=== PATIENT | female | born 1990 | race African-American/Black ===

== ENCOUNTER 2021-08-06 12:01 | Emergency (ER) | payer OTHER, SELFPAY ==
--- NOTE | ~2021-08-06 | CT_ITS ---
CT head/brain wo con, CT facial bones wo con CLINICAL INFORMATION: Reason for Exam syncope, head strike, +loc, headache COMPARISON: No prior CT scan available for comparison. TECHNIQUE: CT head, CT facial bones noncontrasted study Department standard protocol. This CT examination was performed using dose optimization techniques as appropriate, variously including the following: *Automated exposure control *Adjustment of mA and/or kV according to patient size (this includes techniques or standardized protocols for targeted exams where dose is matched to indication/reason for exam; i.e. extremities or head) *Use of iterative reconstruction technique DLP: 1075 mGy-cm FINDINGS: CEREBRAL HEMISPHERES: There is no evidence of intra-axial or extra-axial mass, hemorrhage or acute infarct. BRAIN PARENCHYMA: Normal galvan-white matter differentiation. SUBDURAL SPACE: No bleed. BASAL GANGLIA AND PINEAL GLAND: Unremarkable VENTRICLES: Symmetric and normal in size. CEREBELLUM AND BRAINSTEM: No space-occupying mass, hemorrhage or acute infarct. CEREBELLOPONTINE ANGLES: No lesion found. ORBITS: No intraorbital mass. VESSELS: Unremarkable SKULL BASE: Unremarkable INCLUDED SINUSES AT SKULL BASE: Clear SKULL BASE: Included structures at skull base are normal. BONES: Skull base, orbital bones, nasal bones, maxillary bones, mandibles, zygomatic arches, and included cervical vertebrae are normal. ORBITS: Globes are symmetric. Orbital structures are normal. SALIVARY GLANDS: Unremarkable SINUSES: Clear CT/CT head/brain wo con IMPRESSION: *No CT evidence of intracranial injury or bleed. *Facial bones are intact. No fracture found.
--- NOTE | ~2021-08-06 | CT_ITS ---
CT head/brain wo con, CT facial bones wo con CLINICAL INFORMATION: Reason for Exam syncope, head strike, +loc, headache COMPARISON: No prior CT scan available for comparison. TECHNIQUE: CT head, CT facial bones noncontrasted study Department standard protocol. This CT examination was performed using dose optimization techniques as appropriate, variously including the following: *Automated exposure control *Adjustment of mA and/or kV according to patient size (this includes techniques or standardized protocols for targeted exams where dose is matched to indication/reason for exam; i.e. extremities or head) *Use of iterative reconstruction technique DLP: 1075 mGy-cm FINDINGS: CEREBRAL HEMISPHERES: There is no evidence of intra-axial or extra-axial mass, hemorrhage or acute infarct. BRAIN PARENCHYMA: Normal galvan-white matter differentiation. SUBDURAL SPACE: No bleed. BASAL GANGLIA AND PINEAL GLAND: Unremarkable VENTRICLES: Symmetric and normal in size. CEREBELLUM AND BRAINSTEM: No space-occupying mass, hemorrhage or acute infarct. CEREBELLOPONTINE ANGLES: No lesion found. ORBITS: No intraorbital mass. VESSELS: Unremarkable SKULL BASE: Unremarkable INCLUDED SINUSES AT SKULL BASE: Clear SKULL BASE: Included structures at skull base are normal. BONES: Skull base, orbital bones, nasal bones, maxillary bones, mandibles, zygomatic arches, and included cervical vertebrae are normal. ORBITS: Globes are symmetric. Orbital structures are normal. SALIVARY GLANDS: Unremarkable SINUSES: Clear CT/CT facial bones wo con IMPRESSION: *No CT evidence of intracranial injury or bleed. *Facial bones are intact. No fracture found.
[2021-08-06 12:14] VITALS: BP 157/80; RESP 18; TEMP 36.8; O2SAT 99; BMI 26.6
--- NOTE | 2021-08-06 15:27 | ED_ITS ---
HPI - General Adult General Chief complaint: General Medical Stated complaint: Broken Nose 7 Days Ago Time Seen by Provider: 08/06/21 15:27 Source: patient Mode of arrival: ambulatory Limitations: no limitations History of Present Illness HPI narrative: This is a 30-year-old female past medical history significant for drug-seeking behavior according to records from [facility] presenting to the emergency department with complaints of headache, nose pain, dizziness, frequent syncopal episodes x2 weeks patient tells me that her significant other recently and since then she has not been taking care of herself, she has been depressed, and she has had multiple syncopal episodes where she loses cons ciousness wakes up on the ground and is very confused. She tells me she is not eating or drinking well. She denies chest pain, shortness of breath, nausea, vomiting, fevers, chills. Onset (ago): week(s) (2) Location: head and face Radiation: non-radiation Severity: moderate Pain Consistency: constant Relieving factors: none Exacerbating factors: none Associated symptoms: denies other symptoms Treatments prior to arrival: none Related Data Home Medications Medication Instructions Recorded Confirmed amitriptyline 100 mg tablet 1 tab PO BEDTIME 08/06/21 08/06/21 norethindrone (contraceptive) 0.35 1 tab PO DAILY 08/06/21 08/06/21 mg tablet (Naima-BE) Allergies Allergy/AdvReac Type Severity Reaction Status Date / Time amoxicillin [AMOXICILLIN] Allergy Unknown SYNCOPE Verified 08/06/21 17:27 apple [APPLE] Allergy Unknown UNKNOWN Verified 08/06/21 17:27 CONTRAST DYE Allergy Unknown SYNCOPE Uncoded 08/06/21 17:27 Review of Systems Review of Systems: Constitutional : No Weight loss, No Fever, No Chills, No Fatigue, No Malaise ENT/Mouth : No sore throat, No Rhinorrhea, + nose pain Eyes: No Eye Pain, No Swelling, No Redness Cardiovascular : No Chest Pain, No SOB, No Dyspnea on Exertion, No Orthopnea, No Edema, No Palpitations Respiratory : No Cough, No Sputum, No Wheezing Gastrointestinal : No Nausea, No Vomiting, No Diarrhea, No Constipation, No abdominal Pain, No Hematochezia, No Melena Genitourinary : No Dysuria, No Urinary Frequency, No Hematuria, Musculoskeletal : No joint pain, No Myalgias, No Joint Swelling, Skin : No Skin Lesions, No rash Neuro : No Weakness, No Numbness, No Dizziness, + Headache Psych : No Anxiety/Panic, No Depression All other systems reviewed and are negative Yes all other systems are reviewed and are negative [facility] Past Medical History Attestation statement: The following information was validated with the patient. Source: old records reviewed and nursing notes reviewed Social History Social History Advance Directives: No Advance Directives Information Provided: No Physical Exam ED Vital Signs: Vital Signs - 24 hr 08/06/21 12:14 08/06/21 18:07 08/06/21 18:08 Temperature 98.3 F Pulse Rate 100 99 Respiratory Rate 18 Blood Pressure 157/80 H 120/70 119/75 Pulse Oximetry 99 08/06/21 18:10 Temperature 98.8 F Pulse Rate 87 Respiratory Rate 16 Blood Pressure 111/80 Pulse Oximetry 97 BMI result Body Mass Index 26.6 VSS Appearance: Alert.? Oriented X3.? No acute distress.? Head: Normocephalic, atraumatic, no step-offs or deformities Eyes: Pupils equal, round and reactive to light.? ENT: Pharynx normal.?No deformity to nose. Neck: Normal inspection.? Neck supple.? CVS: Normal heart rate and rhythm.? Pulses normal.? Respiratory: No respiratory distress.? Breath sounds normal.? Abdomen: Soft and nontender.? Skin: Skin warm and dry.? Normal skin color.? Normal skin turgor.? Extremities: No lower extremity edema.? No calf ttp. 5/5 strength to bilateral upper and lower extremities Back: No midline tenderness, no C-spine tenderness, full range of motion, no CVA tenderness bilaterally Neuro: Oriented X 3.? No motor deficit.? No sensory deficit. Cranial nerves 2- 12 intact. Normal [id number], [id number], normal tandem gait. Course Reevaluation(s) Reevaluation #1: Rapid change in patient's behavior, she is being belligerent with me and nurses. She is telling us that we a racist and have her in the hallway because she has black. She endorses suicidal ideation however she says it is not as bad as when her boyfriend 1st . She is refusing COVID testing, and CT scans. Studies were done CBC appeared to be at patient's baseline. No acute electrolyte abnormalities. Patient tells me she is not SI and she says I would never harm myself Will hold on a section 12 as there is no reason to section her at this time. Time: 16:39 Reevaluation #2: Records were obtained from [facility] where patient presented on 07/23/2019 with a similar presentation she had the same complaint, multiple syncopal episodes, stating that she had been seen multiple times at various emergency department for the same thing. Her story is consistent. She states that she lost a loved 1. She also reported at that time that she could not feel her legs and was having trouble walking. At that time she had no loss of bladder or bowel. Today she is not complaining of loss of sensation numbness or paresthesias. It appears as though patient also became somewhat aggressive, and derogatory toward staff members. It looks like she was asking for pain medicine frequently and got upset whenever it was not given to her. Time: 16:40 Reevaluation #3: COVID negative. CT of head and facial bones negative. Urine toxicology pending. During her time here she has not had any syncopal episodes, no vomiting, nausea, headache or dizziness. Headache went away after treatment with medication. No meningeal signs, unlikely meningitis. At this time patient will be placed in physician observation to allow more time to be evaluated by the care team. At time evaluation was started patient was, cooperative in no acute distress. Physical examination unchanged from initial will continue to monitor. Time: 19:06 Medical Decision Making [facility] Narrative Medical decision making narrative: 1600 30 yo f presents with frequent syncopal episodes and nose pain X4 days PE benign. Neuro exam nonfocal. At this time history and physical examination not consistent with stroke, posterior infarct, ICH. Plan- labs, imaging, ekg Medical Records Medical records reviewed: Yes I reviewed the patient's medical records. Lab Data Lab results reviewed: Yes I reviewed the patient's lab results. Result diagrams: 08/06/21 16:29 08/06/21 16:29 Labs: Lab Results 08/06/21 08/06/21 08/06/21 Range/Units 16:29 16:29 17:34 WBC 8.6 (4.8-10.8) X10*3/uL RBC 4.85 (4.20-5.50) X10*6/uL Hgb 11.0 L (12.0-16.0) g/dl Hct 35.7 L (37.0-47.0) % MCV 73.6 L (80.0-98.0) fL MCH 22.7 L (27.0-33.0) pg MCHC 30.8 L (31.0-35.0) g/dl RDW 15.1 (11.0-16.0) % Plt Count 378 (160-400) X10*3/uL MPV 8.4 L (9.4-12.3) fL Immature Gran % (Auto) 0.2 (0.0-0.4) % Neut % (Auto) 48.7 (45-73) % Lymph % (Auto) 42.0 H (20-40) % [place] % (Auto) 5.4 (2-11) % Eos % (Auto) 3.0 (0-4) % Baso % (Auto) 0.7 (0-2) % Lymph # (Auto) 3.6 (1.2-4.9) X10*3/uL [place] # (Auto) 0.5 (0.1-1.2) X10*3/uL Eos # (Auto) 0.3 (0.0-0.4) X10*3/uL Baso # (Auto) 0.1 (0.0-0.2) X10*3/uL Abs Immat Gran (auto) 0.02 (0.00-0.03) X10*3/uL Absolute Neuts (auto) 4.2 (2.0-8.3) x10*3/uL Absolute Nucleated RBC 0.000 (0.0-0.012) X10*3/uL Nucleated RBC % (auto) 0.0 (0.0-0.2) /100WBC Sodium 139 (135-145) mmol/L Potassium 3.8 (3.3-5.1) mmol/L Chloride 104 (96-108) mmol/L Carbon Dioxide 29 (22-29) mmol/L Anion Gap 10 L (12-20) BUN 8 L (9-16) mg/dL Creatinine 0.68 (0.5-1.4) mg/dL Estim Creat Clear Calc 120.7 Estimated GFR > 60 Random Glucose 91 (60-115) mg/dL Calcium 9.7 (8.4-10.2) mg/dL Magnesium 1.8 (1.6-2.6) mg/dL Total Bilirubin 0.2 (0.0-1.0) mg/dL AST 13 (5-31) U/L ALT 12 (0-31) U/L Alkaline Phosphatase 59 (39-117) U/L Total Protein 7.2 (6.5-8.0) g/dL Albumin 4.3 (3.5-5.0) g/dL COVID-19 (ADAN) Negative (Negative) COVID-19 Clin Com See Note ECG Data Attestation: I personally reviewed and interpreted this ECG as follows: Prior ECG tracings: available for review Interpretation: Ventricular rate of 97, IN normal, QRS normal, QT/QTC normal. EKG shows normal sinus rhythm no ST elevations or inversions concerning for ischemia. No previ ous EKGs to compare with. Critical Care Time Critical Care Time Critical Care Time: No Discharge Plan Discharge Clinical Impression: Headache, Nasal pain, Depression, Complicated grieving Patient Disposition: Still a Patient Prescriptions: No Action norethindrone (contraceptive) [Naima-BE] 0.35 mg tablet 1 tab PO DAILY 0RF amitriptyline 100 mg tablet 1 tab PO BEDTIME 0RF
--- NOTE | 2021-08-06 15:30 | ECG_ITS ---
Test Reason : SYNCOPE Blood Pressure : / mmHG Vent. Rate : 097 BPM Atrial Rate : 097 BPM P-R Int : 120 ms QRS Dur : 070 ms QT Int : 332 ms P-R-T Axes : 054 058 055 degrees QTc Int : 421 ms Normal sinus rhythm Normal ECG No previous ECGs available Referred By: Cande Guerrier Electronically Signed By:GEOVANNA WEAVER
[2021-08-06 16:34] LABS: MANUAL DIFF FLAG NO
[2021-08-06 16:35] LABS: Basophils Absolute Auto 0.1 X10*3/uL (0.0-0.2); Basophils Percent Auto 0.7 % (0-2); Eosinophils Absolute Auto 0.3 X10*3/uL (0.0-0.4); Hematocrit 35.7 % (37.0-47.0); Imm Gran Abs Auto 0.02 X10*3/uL (0.00-0.03); Imm Gran Pct Auto 0.2 % (0.0-0.4); Lymphocytes Absolute Auto 3.6 X10*3/uL (1.2-4.9); Mean Corpuscular HGB Conc 30.8 g/dl (31.0-35.0); Mean Corpuscular Hemoglobin 22.7 pg (27.0-33.0); Mean Corpuscular Volume 73.6 fL (80.0-98.0); Mean Platelet Volume 8.4 fL (9.4-12.3); Monocytes Absolute Auto 0.5 X10*3/uL (0.1-1.2); Monocytes Percent Auto 5.4 % (2-11); Neutrophils Absolute Auto 4.2 x10*3/uL (2.0-8.3); Neutrophils Percent Auto 48.7 % (45-73); Platelet Count 378 X10*3/uL (160-400); Red Blood Count 4.85 X10*6/uL (4.20-5.50); Red Cell Distribution Width 15.1 % (11.0-16.0); White Blood Count 8.6 X10*3/uL (4.8-10.8)
--- NOTE | 2021-08-06 16:53 | PHA.MEDREC ---
Pharmacy Consult ? Medication Reconciliation Pharmacy has completed the medication reconciliation.
[2021-08-06 16:54] LABS: Alanine Aminotransferase 12 U/L (0-31); Albumin Level 4.3 g/dL (3.5-5.0); Alkaline Phosphatase 59 U/L (39-117); Anion Gap 10 (12-20); Aspartate Amino Transferase 13 U/L (5-31); Bilirubin Total 0.2 mg/dL (0.0-1.0); Blood Urea Nitrogen 8 mg/dL (9-16); Calcium 9.7 mg/dL (8.4-10.2); Carbon Dioxide 29 mmol/L (22-29); Chloride 104 mmol/L (96-108); Creatinine Clr Calc Pharmacy 120.7; Estimated Glomerular Filt Rate > 60; Glucose Random 91 mg/dL (60-115); Magnesium 1.8 mg/dL (1.6-2.6); Potassium 3.8 mmol/L (3.3-5.1); Sodium 139 mmol/L (135-145); Total Protein 7.2 g/dL (6.5-8.0)
--- NOTE | 2021-08-06 17:05 | PC.NURSE ---
pt refusing CT at this time, reports she doesn;t see the point . pt irriable, I was here since 11am, I should have just stayed home and . pt reported to the helicopter technician that she did not want to go to CT because shes in the hallways and we wont move her to a room because she is black . pt reports she still would like to receive the IV medication for the headache, was tearful. moved pt to room 3 for comfort. Fatuma CALHOUN made aware of pts comments.
[2021-08-06] MEDS: Acetaminophen 325 MG TABLET 975 MG PO (17:27)
[2021-08-06] MEDS: diphenhydrAMINE HCL 50 MG/ML VIAL IVPUSH (17:31)
[2021-08-06] MEDS: Metoclopramide HCl 10 MG/2 ML VIAL IVPUSH (17:31)
[2021-08-06 17:57] LABS: COVID-19 Test Negative (Negative)
[2021-08-06 18:07] VITALS: BP 111/80; BP 120/70; PULSE 100; PULSE 98
[2021-08-06 18:08] VITALS: BP 119/75; PULSE 99
[2021-08-06 18:10] VITALS: BP 111/80; PULSE 87; RESP 16; TEMP 37.1; O2SAT 97
--- NOTE | 2021-08-06 20:25 | MHC.CARE ---
RISK ASSESSMENT CARE team consult requested by ED provider for pt who self presented to the ED with complaints of recent syncopal episodes. She has been medically cleared and referred for behavioral health evaluation after endorsing ongoing depression and intermittent SI since the of her boyfriend. This bond writer met with pt in the main ED room 3. She was alert and oriented, hygiene and grooming were within normal limits, mood was dysthymic with congruent affect, speech was clear with even tone, and eye contact was intermittent. She reported that her sleep and appetite hasn't been good since her boyfriend in October 2020, sharing that he had in his sleep and she discovered he had passed when she was woke. She denied any recent or current SI, though noted that she was definitely suicidal for a while after the of her boyfriend. She denied any history of self harm or suicide attempts. She reported that she started working with a therapist and psych med management through [facility] in [place], where she also has her PCP. She has an appt with her therapist, Ronna, on 08/10/21 and she had an appt with TWAN Levin a few weeks ago and was started on 0.5mg clonazepam to manage her anxiety and depression. She shared that she also has an appt with her PCP this week. This bond writer recommended that she follow up with her med prescriber re: the syncopal episodes as well, as the timeline of when she started the medication lines up with the onset of the episodes. Pt does not require further mental health evaluation at this time, and declined wanting any additional resources or referrals. Consult outcome was discussed with ED provider Cande CALHOUN, plan is for discharge and follow up with outpatient providers.
== END 2021-08-06 20:30 | disposition home or self-care (01) ==
PROVIDERS: Physician Assistant; Emergency Provider Internal Medicine
DX: R51.9 Headache, unspecified (principal); J34.89 Other specified disorders of nose and nasal sinuses; F33.1 Major depressive disorder, recurrent, moderate; R42 Dizziness and giddiness; Z20.822 Contact with and (suspected) exposure to COVID-19; Z79.899 Other long term (current) drug therapy
CPT/HCPCS: 70450; 70486; 80053; 83735; 85025; 87635; 93005; 96374; 96376; 99284; J1200; J2765

== ENCOUNTER 2021-09-02 00:59 | Emergency (ER) | payer OTHER, SELFPAY ==
--- NOTE | ~2021-09-02 | US_ITS ---
EXAMINATION: US PELVIS CLINICAL INFORMATION: Pelvic pain with history of PCOS. COMPARISON: None TECHNIQUE: Ultrasound of the pelvis is performed using transabdominal transducer along with Doppler. FINDINGS: Uterus: The uterus is anteverted and measures 9.1 x 6 x 8.6 cm. The double wall endometrial thickness is 1.2 mm. The uterus is smooth in contour and has normal myometrial echogenicity. There is a left fundal fibroid identified measuring 6.9 x 6.2 x 5.4 cm. Adnexa: Both ovaries are visualized. There is normal color flow to the adnexa. Normal arterial and venous spectral waveforms. There is no ovarian torsion. There is no pelvic ascites or fluid collection. Right ovary measures 2.7 x 1.8 x 1.9 cm. Left ovary measures 5 x 4.3 x 4.7 cm. There is a left adnexal cyst measuring 3.7 cm. Internal echoes are present. A few follicles are also noted. US/US pelvic complete IMPRESSION: No evidence of active ovarian torsion at this time. Somewhat complex left adnexal cyst measures 3.7 cm, with internal echoes noted. This likely represents a hemorrhagic cyst.
[2021-09-02 01:07] VITALS: BP 112/79; PULSE 105; RESP 16; TEMP 36.9; O2SAT 100; BMI 33.6
--- NOTE | 2021-09-02 01:48 | ED.FEMALEGU ---
HPI - Female Genitourinary General Chief complaint: Abdominal Pain Stated complaint: Lower abd pain Time Seen by Provider: 09/02/21 01:47 Source: patient Mode of arrival: ambulatory Limitations: no limitations History of Present Illness HPI Narrative: patient's history of polycystic ovarian disease at multiple ultrasounds with multiple ovarian cyst last ultrasound was 6 months ago complaining of lower abdominal pain for last few weeks getting worse for last 1 week no nausea no vomiting no diarrhea no vaginal discharge Related Data Home Medications Medication Instructions Recorded Confirmed amitriptyline 100 mg tablet 1 tab PO BEDTIME 08/06/21 08/06/21 norethindrone (contraceptive) 0.35 1 tab PO DAILY 08/06/21 08/06/21 mg tablet (Naima-BE) Previous Rx's Medication Instructions Recorded ibuprofen 600 mg tablet 600 mg PO Q6H PRN #20 tab 09/02/21 Allergies Allergy/AdvReac Type Severity Reaction Status Date / Time amoxicillin [AMOXICILLIN] Allergy Unknown SYNCOPE Verified 08/06/21 17:27 apple [APPLE] Allergy Unknown UNKNOWN Verified 08/06/21 17:27 CONTRAST DYE Allergy Unknown SYNCOPE Uncoded 08/06/21 17:27 Review of Systems Review of Systems: Yes all other systems are reviewed and are negative PMFSH Social History Social History Advance Directives: No Advance Directives Information Provided: No Patient : No Physical Exam Vital Signs: Vital Signs: Last Vital Signs Temp 97.2 F 09/02/21 04:00 Pulse 92 09/02/21 04:00 Resp 18 09/02/21 04:40 BP 121/80 09/02/21 04:40 Pulse Ox 100 09/02/21 04:00 BMI result Body Mass Index 33.6 Appearance: Alert. Oriented X3. No acute distress. ENT: Pharynx normal. Oral Mucosa moist Neck: Normal inspection. Neck supple. CVS: Normal heart rate and rhythm. Pulses normal. Respiratory: No respiratory distress. Equal air entry bilateral, Abdomen: Soft diffuse suprapubic tenderness no rebound tenderness or guarding Bowel sounds are present, no mass palpable, no CVA tenderness Skin: Skin warm and dry. Normal skin color. Normal skin turgor. Neuro: Oriented X 3. 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 Result diagrams: 09/02/21 02:58 09/02/21 02:58 Labs: Lab Results 09/02/21 09/02/21 Range/Units 02:58 02:58 WBC 11.4 H (4.8-10.8) X10*3/uL RBC 4.66 (4.20-5.50) X10*6/uL Hgb 10.7 L (12.0-16.0) g/dl Hct 34.6 L (37.0-47.0) % MCV 74.2 L (80.0-98.0) fL MCH 23.0 L (27.0-33.0) pg MCHC 30.9 L (31.0-35.0) g/dl RDW 15.9 (11.0-16.0) % Plt Count 391 (160-400) X10*3/uL MPV 9.8 (9.4-12.3) fL Immature Gran % (Auto) 0.3 (0.0-0.4) % Neut % (Auto) 55.8 (45-73) % Lymph % (Auto) 36.0 (20-40) % [place] % (Auto) 5.0 (2-11) % Eos % (Auto) 2.4 (0-4) % Baso % (Auto) 0.5 (0-2) % Lymph # (Auto) 4.1 (1.2-4.9) X10*3/uL [place] # (Auto) 0.6 (0.1-1.2) X10*3/uL Eos # (Auto) 0.3 (0.0-0.4) X10*3/uL Baso # (Auto) 0.1 (0.0-0.2) X10*3/uL Abs Immat Gran (auto) 0.03 (0.00-0.03) X10*3/uL Absolute Neuts (auto) 6.4 (2.0-8.3) x10*3/uL Absolute Nucleated RBC 0.000 (0.0-0.012) X10*3/uL Nucleated RBC % (auto) 0.0 (0.0-0.2) /100WBC Sodium 139 (135-145) mmol/L Potassium 3.9 (3.3-5.1) mmol/L Chloride 107 (96-108) mmol/L Carbon Dioxide 22 (22-29) mmol/L Anion Gap 14 (12-20) BUN 9 (9-16) mg/dL Creatinine 0.77 (0.5-1.4) mg/dL Estim Creat Clear Calc 107.0 Estimated GFR > 60 Random Glucose 97 (60-115) mg/dL Calcium 10.0 (8.4-10.2) mg/dL Discharge Plan Discharge Clinical Impression: Ovarian cyst, Fibroid uterus Patient Disposition: Home, Self-Care Instructions: Ovarian Cyst (ED) Additional Instructions: take pain medication as prescribed follow up with school speech therapist Prescriptions: New ibuprofen 600 mg tablet 600 mg PO Q6H PRN (Reason: pain) Qty: 20 0RF No Action norethindrone (contraceptive) [Naima-BE] 0.35 mg tablet 1 tab PO DAILY 0RF amitriptyline 100 mg tablet 1 tab PO BEDTIME 0RF
[2021-09-02] MEDS: Ketorolac Tromethamine 60 MG/2 ML VIAL IM (02:48)
[2021-09-02 03:04] LABS: MANUAL DIFF FLAG NO
[2021-09-02 03:05] LABS: Basophils Absolute Auto 0.1 X10*3/uL (0.0-0.2); Basophils Percent Auto 0.5 % (0-2); Eosinophils Absolute Auto 0.3 X10*3/uL (0.0-0.4); Eosinophils Percent Auto 2.4 % (0-4); Hematocrit 34.6 % (37.0-47.0); Hemoglobin 10.7 g/dl (12.0-16.0); Imm Gran Abs Auto 0.03 X10*3/uL (0.00-0.03); Imm Gran Pct Auto 0.3 % (0.0-0.4); Lymphocytes Absolute Auto 4.1 X10*3/uL (1.2-4.9); Mean Corpuscular HGB Conc 30.9 g/dl (31.0-35.0); Mean Corpuscular Volume 74.2 fL (80.0-98.0); Mean Platelet Volume 9.8 fL (9.4-12.3); Monocytes Absolute Auto 0.6 X10*3/uL (0.1-1.2); Neutrophils Absolute Auto 6.4 x10*3/uL (2.0-8.3); Neutrophils Percent Auto 55.8 % (45-73); Platelet Count 391 X10*3/uL (160-400); Red Blood Count 4.66 X10*6/uL (4.20-5.50); Red Cell Distribution Width 15.9 % (11.0-16.0); White Blood Count 11.4 X10*3/uL (4.8-10.8)
[2021-09-02 03:25] LABS: Anion Gap 14 (12-20); Blood Urea Nitrogen 9 mg/dL (9-16); Carbon Dioxide 22 mmol/L (22-29); Chloride 107 mmol/L (96-108); Estimated Glomerular Filt Rate > 60; Glucose Random 97 mg/dL (60-115); Potassium 3.9 mmol/L (3.3-5.1); Sodium 139 mmol/L (135-145)
[2021-09-02 04:00] VITALS: BP 121/80; PULSE 92; RESP 16; TEMP 36.2; O2SAT 100
[2021-09-02 04:40] VITALS: BP 121/80; RESP 18
[2021-09-02] MEDS: oxyCODONE HCl Immed Release 5 MG TABLET PO (04:44)
== END 2021-09-02 05:39 | disposition home or self-care (01) ==
PROVIDERS: Emergency Provider Internal Medicine
DX: N83.292 Other ovarian cyst, left side (principal); D25.9 Leiomyoma of uterus, unspecified; R10.30 Lower abdominal pain, unspecified
CPT/HCPCS: 36415; 76856; 80048; 85025; 96372; 99284; J1885

== ENCOUNTER 2021-11-28 14:00 | Emergency (ER) | payer OTHER, SELFPAY ==
--- NOTE | ~2021-11-28 | US_ITS ---
EXAMINATION: US pelvic, LIMITED/FOLLOW UP CLINICAL INFORMATION: Vaginal bleeding and pelvic pain. COMPARISON: Ultrasound pelvis 09/02/2021. TECHNIQUE: Transabdominal imaging of pelvis is performed. Patient refused transvaginal ultrasound. FINDINGS: On transabdominal ultrasound the uterus is anteverted and anteflexed measuring 8.4 cm in length, 4.1 mL in AP and 9.3 cm in transit dimension.. The endometrial thickness is 0.8 cm. There is a hypoechoic lesion in the left fundus measuring 5.8 x 6.8 x 6.1 cm. Previously it 0.9 x 6.2 x 5.4 cm. No additional lesions seen. Right ovary measures 2.0 x 1.8 0.9 mL in volume 6 1.7 mL. There is normal vascular flow seen to right ovarian Doppler exam. Left ovary measures 3.4 x 3.9 x 2.9 cm and volume 20.1 mL. Multiple small cysts are seen in the left ovary.. There is normal arterial and venous flow seen to left ovarian Doppler exam. There is no free fluid seen in the cul-de-sac. US/US pelvic ovarian doppler IMPRESSION: Large fibroid in the left fundal uterus. Multiple cysts in the left ovary. Right ovary is not seen well.
--- NOTE | ~2021-11-28 | US_ITS ---
EXAMINATION: US pelvic, LIMITED/FOLLOW UP CLINICAL INFORMATION: Vaginal bleeding and pelvic pain. COMPARISON: Ultrasound pelvis 09/02/2021. TECHNIQUE: Transabdominal imaging of pelvis is performed. Patient refused transvaginal ultrasound. FINDINGS: On transabdominal ultrasound the uterus is anteverted and anteflexed measuring 8.4 cm in length, 4.1 mL in AP and 9.3 cm in transit dimension.. The endometrial thickness is 0.8 cm. There is a hypoechoic lesion in the left fundus measuring 5.8 x 6.8 x 6.1 cm. Previously it 0.9 x 6.2 x 5.4 cm. No additional lesions seen. Right ovary measures 2.0 x 1.8 0.9 mL in volume 6 1.7 mL. There is normal vascular flow seen to right ovarian Doppler exam. Left ovary measures 3.4 x 3.9 x 2.9 cm and volume 20.1 mL. Multiple small cysts are seen in the left ovary.. There is normal arterial and venous flow seen to left ovarian Doppler exam. There is no free fluid seen in the cul-de-sac. US/US pelvic limited IMPRESSION: Large fibroid in the left fundal uterus. Multiple cysts in the left ovary. Right ovary is not seen well.
[2021-11-28 14:16] VITALS: BP 140/98; PULSE 93; RESP 18; TEMP 36.9; O2SAT 98; BMI 32.1
--- NOTE | 2021-11-28 14:21 | PC.NURSE ---
PT DID NOT WANT LABS DONE AT THIS TIME WANTED TO WAIT TO SEE IF SHE NEEDS AN IV
[2021-11-28 19:42] VITALS: BP 60/35; PULSE 84; RESP 20; TEMP 36.6; O2SAT 100
--- NOTE | 2021-11-28 19:49 | ED_ITS ---
HPI - Female Genitourinary General Chief complaint: Urogenital-Female Stated complaint: ovarian cyst, vaginal bleeding Time Seen by Provider: 11/28/21 19:49 Source: patient Mode of arrival: ambulatory Limitations: other (poor historian) History of Present Illness HPI Narrative: This is a 30-year-old female past medical history significant for drug-seeking behavior according to records from [facility], [place] presenting to the emergency department with complaints of my left ovarian cyst ruptured . Patient reports that she was seen by her OBGYN and she was sent to the emergency department because of vaginal bleeding and pelvic pain. Patient tells me she has a history of ovarian cysts. She tells me she is bleeding through 5 pads per day. Patient is poor historian and tells me she thinks she goes to [place] for OBGYN. She reports 10/10 pain, requesting breast to not touch her. Denying fevers, chills, chest pain, shortness of breath, nausea, vomiting. Patient does not think she is . When asked questions about she changes the topic. Tells me has no concerns for STDs. Requesting something for the pain prior to examination. MD elicited complaint: vaginal bleeding and pelvic pain Onset (ago): day(s) (1) Severity: severe Severity scale (1-10): >10 Quality of pain: sharp Consistency: constant Vaginal discharge: none Vaginal bleeding: heavy Exacerbating factors: none Relieving factors: none Associated symptoms: abdominal pain Treatment prior to arrival: none Sexual activity: No Patient : No Related Data Home Medications Medication Instructions Recorded Confirmed amitriptyline 100 mg tablet 1 tab PO BEDTIME 08/06/21 08/06/21 norethindrone (contraceptive) 0.35 1 tab PO DAILY 08/06/21 08/06/21 mg tablet (Naima-BE) Previous Rx's Medication Instructions Recorded ibuprofen 600 mg tablet 600 mg PO Q6H PRN pain #20 tabs 09/02/21 Allergies Allergy/AdvReac Type Severity Reaction Status Date / Time amoxicillin [AMOXICILLIN] Allergy Unknown SYNCOPE Verified 08/06/21 17:27 apple [APPLE] Allergy Unknown UNKNOWN Verified 08/06/21 17:27 CONTRAST DYE Allergy Unknown SYNCOPE Uncoded 08/06/21 17:27 Review of Systems Review of Systems: Constitutional : No Weight loss, No Fever, No Chills, No Fatigue, No Malaise ENT/Mouth : No sore throat, No Rhinorrhea Eyes: No Eye Pain, No Swelling, No Redness Cardiovascular : No Chest Pain, No SOB, No Dyspnea on Exertion, No Orthopnea, No Edema, No Palpitations Respiratory : No Cough, No Sputum, No Wheezing Gastrointestinal : No Nausea, No Vomiting, No Diarrhea, No Constipation, + abdominal Pain, No Hematochezia, No Melena Genitourinary : No Dysuria, No Urinary Frequency, No Hematuria,+vaginal bleeding Musculoskeletal : No joint pain, No Myalgias, No Joint Swelling Skin : No Skin Lesions, No rash Neuro : No Weakness, No Numbness, No Dizziness, No Headache All other systems reviewed and are negative Yes all other systems are reviewed and are negative [facility] Past Medical History Attestation statement: The following information was validated with the patient. Source: old records reviewed and nursing notes reviewed Social History Social History Advance Directives: No Advance Directives Information Provided: No Patient : No Physical Exam Vital Signs: Vital Signs: Last Vital Signs Temp 97.8 F 11/28/21 19:42 Pulse 80 11/28/21 22:20 Resp 16 11/28/21 22:20 BP 124/86 11/28/21 22:20 Pulse Ox 100 11/28/21 22:20 O2 Del Method 11/28/21 22:20 BMI result Body Mass Index 32.1 VSS Appearance: Alert.? Oriented X3.? No acute distress.? Patient screaming out in pain. Head: Normocephalic, atraumatic, no step-offs or deformities Eyes: Pupils equal, round and reactive to light.? ENT: Pharynx normal.? Neck: Normal inspection.? Neck supple.? CVS: Normal heart rate and rhythm.? Pulses normal.? Respiratory: No respiratory distress.? Breath sounds normal.? Abdomen: Soft and +LLQ mild tenderness .? Skin: Skin warm and dry.? Normal skin color.? Normal skin turgor.? Sensitive exam: Refuses, tells me she needs pain medication 1st. Extremities: No lower extremity edema.? No calf ttp. 5/5 strength to bilateral upper and lower extremities Back: No midline tenderness, no C-spine tenderness, full range of motion, no CVA tenderness bilaterally Neuro: Oriented X 3.? No motor deficit.? No sensory deficit. CN 2-12 intact Course Reevaluation(s) Reevaluation #1: Delay in obtaining patient's lab secondary to patient being a tough stick. I was able to start a 20 gauge IV in the left wrist. Time: 20:34 Reevaluation #2: Patient refusing vitals, labs, smoking vape in the room. Security at the bedside. Time: 22:25 Reevaluation #3: Finally were able to obtain labs. Patient is noted to have a slight anemia, however, this appears to be her baseline. Chemistry with no acute findings requiring intervention. COVID negative. Patient with a large fibroid in the left fundal uterus. Multiple cysts in the left ovary. Right ovary is not seen well. Normal flow to bilateral ovaries unlikely that this is torsion. These findings were also noted on patient's visit in 09/02/2021 she was advised to follow-up with her OBGYN. Pain now with complains of abd palpation to left lower quadrant elicits pain will do an abdominal CT to rule out diverticulitis. Patient allowed me to do a pelvic exam on her closed cervical os with very minimal blood within the vaginal canal. No discharge. No poc noted within the cervical os, negative chandelier sign. Patient tolerated procedure well. Time: 22:51 Additional Reevaluation(s): [address] tells me that she just wants pain medication. Does not want a CT scan to rule out other intra-abdominal possible etiologies. Explained to patient that this is leaving against medical advice as I have not ruled out other intra-abdominal processes and patient remains in pain. At this time patient will be discharged against medical advice. MDM - Female Genitourinary MDM Narrative Medical decision making narrative: 2007 31-year-old female presents with abdominal pain/pelvic pain, vaginal bleeding x1 day. Patient poor historian. Requesting pain medicine. Refusing a full exam at this time. Upon physical examination patient is noted to be screaming in pain. Regular rate and rhythm. Lungs clear. Abdomen soft diffusely tender nondistended. Neuro exam nonfocal. Refusing sensitive exam at this time. Patient's vitals on the chart significant for hypotension however I did a manual blood pressure and her blood pressure is around 110/80. Likely low secondary to wrong cuff size or mal functioning equiptment Likely ovarian cyst or fibroid. Unlikely ectopic , torsion. Plan at this time is to obtain basic labs, type and screen, urine, pelvic ultrasound. Medical Records Attestation: I reviewed the patient's medical records. Lab Data Attestation: I reviewed the patient's lab results. Result diagrams: 11/28/21 22:08 11/28/21 22:08 Labs: Lab Results 11/28/21 11/28/21 11/28/21 Range/Units 22:08 22:08 22:08 WBC 8.3 (4.8-10.8) X10*3/uL RBC 4.52 (4.20-5.50) X10*6/uL Hgb 10.2 L (12.0-16.0) g/dl Hct 32.8 L (37.0-47.0) % MCV 72.6 L (80.0-98.0) fL MCH 22.6 L (27.0-33.0) pg MCHC 31.1 (31.0-35.0) g/dl RDW 14.8 (11.0-16.0) % Plt Count 407 H (160-400) X10*3/uL MPV 9.0 L (9.4-12.3) fL Immature Gran % (Auto) 0.1 (0.0-0.4) % Neut % (Auto) 32.5 L (45-73) % Lymph % (Auto) 57.6 H (20-40) % [place] % (Auto) 6.4 (2-11) % Eos % (Auto) 2.7 (0-4) % Baso % (Auto) 0.7 (0-2) % Lymph # (Auto) 4.8 (1.2-4.9) X10*3/uL [place] # (Auto) 0.5 (0.1-1.2) X10*3/uL Eos # (Auto) 0.2 (0.0-0.4) X10*3/uL Baso # (Auto) 0.1 (0.0-0.2) X10*3/uL Abs Immat Gran (auto) 0.01 (0.00-0.03) X10*3/uL Absolute Neuts (auto) 2.7 (2.0-8.3) x10*3/uL Absolute Nucleated RBC 0.000 (0.0-0.012) X10*3/uL Nucleated RBC % (auto) 0.0 (0.0-0.2) /100WBC Sodium 137 (135-145) mmol/L Potassium 3.8 (3.3-5.1) mmol/L Chloride 105 (96-108) mmol/L Carbon Dioxide 25 (22-29) mmol/L Anion Gap 11 L (12-20) BUN 10 (9-16) mg/dL Creatinine 0.74 (0.5-1.4) mg/dL Estim Creat Clear Calc 103.4 Estimated GFR > 60 Random Glucose 89 (60-115) mg/dL Lactic Acid (0.5-2.0) mmol/L Calcium 8.8 D (8.4-10.2) mg/dL Total Bilirubin 0.2 (0.0-1.0) mg/dL AST 11 (5-31) U/L ALT 7 (0-31) U/L Alkaline Phosphatase 52 (39-117) U/L Total Protein 6.5 (6.5-8.0) g/dL Albumin 4.0 (3.5-5.0) g/dL Beta HCG, Quant < 2 mIU/mL Blood Type Antibody Screen 11/28/21 11/28/21 Range/Units 22:08 22:09 WBC (4.8-10.8) X10*3/uL RBC (4.20-5.50) X10*6/uL Hgb (12.0-16.0) g/dl Hct (37.0-47.0) % MCV (80.0-98.0) fL MCH (27.0-33.0) pg MCHC (31.0-35.0) g/dl RDW (11.0-16.0) % Plt Count (160-400) X10*3/uL MPV (9.4-12.3) fL Immature Gran % (Auto) (0.0-0.4) % Neut % (Auto) (45-73) % Lymph % (Auto) (20-40) % [place] % (Auto) (2-11) % Eos % (Auto) (0-4) % Baso % (Auto) (0-2) % Lymph # (Auto) (1.2-4.9) X10*3/uL [place] # (Auto) (0.1-1.2) X10*3/uL Eos # (Auto) (0.0-0.4) X10*3/uL Baso # (Auto) (0.0-0.2) X10*3/uL Abs Immat Gran (auto) (0.00-0.03) X10*3/uL Absolute Neuts (auto) (2.0-8.3) x10*3/uL Absolute Nucleated RBC (0.0-0.012) X10*3/uL Nucleated RBC % (auto) (0.0-0.2) /100WBC Sodium (135-145) mmol/L Potassium (3.3-5.1) mmol/L Chloride (96-108) mmol/L Carbon Dioxide (22-29) mmol/L Anion Gap (12-20) BUN (9-16) mg/dL Creatinine (0.5-1.4) mg/dL Estim Creat Clear Calc Estimated GFR Random Glucose (60-115) mg/dL Lactic Acid 0.7 (0.5-2.0) mmol/L Calcium (8.4-10.2) mg/dL Total Bilirubin (0.0-1.0) mg/dL AST (5-31) U/L ALT (0-31) U/L Alkaline Phosphatase (39-117) U/L Total Protein (6.5-8.0) g/dL Albumin (3.5-5.0) g/dL Beta HCG, Quant mIU/mL Blood Type AB Positive Antibody Screen NEGATIVE Critical Care Time Critical Care Time Critical Care Time: No Discharge Plan Discharge Clinical Impression: Vaginal bleeding, Abdominal pain, Left against medical advice Patient Disposition: Home, Self-Care Instructions: Dysfunctional Uterine Bleeding (ED), Against Medical Advice (ED) Additional Instructions: Take your medications as prescribed. If you were prescribed antibiotics today, it is important that you take your medication to their entirety, do not skip any doses, do not finish them early. Follow-up with your primary care provider this week. Please follow-up with your OBGYN. Return to the emergency department with new or worsening symptoms. Such as fevers, chills, chest pain, shortness of breath, nausea, vomiting, dizziness, headache, vision changes, lethargy In case of emergency call 911 Vaginal bleeding is likely secondary to a fibroid. No needed for intervention in the emergency department this time. Your laboratory studies were reassuring. You refused an abdominal CT and your complaining of abdominal pain that has not subsided despite pain medication therefore your leaving against medical advice as I am unable to rule out intra-abdominal diagnoses. Leaving against medical advice includes risks such as , worsening pain, progression of disease, undiagnosed diagnoses, infection, worsening condition, decreased quality of life. US/US pelvic limited IMPRESSION: Large fibroid in the left fundal uterus. ? Multiple cysts in the left ovary. ? Right ovary is not seen well. ? US/US pelvic ovarian doppler IMPRESSION: Large fibroid in the left fundal uterus. ? Multiple cysts in the left ovary. ? Right ovary is not seen well. Prescriptions: No Action norethindrone (contraceptive) [Naima-BE] 0.35 mg tablet 1 tab PO DAILY amitriptyline 100 mg tablet 1 tab PO BEDTIME ibuprofen 600 mg tablet 600 mg PO Q6H PRN (Reason: pain) Qty: 20 0RF Referrals: Physician,Unknown J [Primary Care Provider] - 2 days Stand Alone Forms: Against Medical Advice
[2021-11-28] MEDS: Ketorolac Tromethamine 15 MG/ML VIAL 30 MG IVPUSH (20:40)
[2021-11-28 22:17] LABS: MANUAL DIFF FLAG NO
[2021-11-28] MEDS: Morphine Sulfate 2 MG/ML CARTRIDGE IVPUSH (22:19)
[2021-11-28] MEDS: 0.9 % Sodium Chloride 1,000 ML 999 ML IV (22:19)
[2021-11-28 22:20] VITALS: BP 124/86; PULSE 80; RESP 16; O2SAT 100
[2021-11-28 22:21] LABS: Basophils Absolute Auto 0.1 X10*3/uL (0.0-0.2); Basophils Percent Auto 0.7 % (0-2); Eosinophils Absolute Auto 0.2 X10*3/uL (0.0-0.4); Eosinophils Percent Auto 2.7 % (0-4); Hematocrit 32.8 % (37.0-47.0); Hemoglobin 10.2 g/dl (12.0-16.0); Imm Gran Abs Auto 0.01 X10*3/uL (0.00-0.03); Imm Gran Pct Auto 0.1 % (0.0-0.4); Lymphocytes Absolute Auto 4.8 X10*3/uL (1.2-4.9); Lymphocytes Percent Auto 57.6 % (20-40); Mean Corpuscular HGB Conc 31.1 g/dl (31.0-35.0); Mean Corpuscular Hemoglobin 22.6 pg (27.0-33.0); Mean Corpuscular Volume 72.6 fL (80.0-98.0); Monocytes Absolute Auto 0.5 X10*3/uL (0.1-1.2); Monocytes Percent Auto 6.4 % (2-11); Neutrophils Absolute Auto 2.7 x10*3/uL (2.0-8.3); Neutrophils Percent Auto 32.5 % (45-73); Platelet Count 407 X10*3/uL (160-400); Red Blood Count 4.52 X10*6/uL (4.20-5.50); Red Cell Distribution Width 14.8 % (11.0-16.0); White Blood Count 8.3 X10*3/uL (4.8-10.8)
[2021-11-28 22:29] LABS: Lactic Acid 0.7 mmol/L (0.5-2.0)
[2021-11-28 22:35] LABS: Alanine Aminotransferase 7 U/L (0-31); Alkaline Phosphatase 52 U/L (39-117); Anion Gap 11 (12-20); Aspartate Amino Transferase 11 U/L (5-31); Bilirubin Total 0.2 mg/dL (0.0-1.0); Blood Urea Nitrogen 10 mg/dL (9-16); Calcium 8.8 mg/dL (8.4-10.2); Carbon Dioxide 25 mmol/L (22-29); Chloride 105 mmol/L (96-108); Creatinine Clr Calc Pharmacy 103.4; Estimated Glomerular Filt Rate > 60; Glucose Random 89 mg/dL (60-115); Potassium 3.8 mmol/L (3.3-5.1); Sodium 137 mmol/L (135-145); Total Protein 6.5 g/dL (6.5-8.0)
--- NOTE | 2021-11-28 23:36 | PC.NURSE ---
RN in room with provider while provider performed pelvic exam, pt tolerated well. pt declined CT, requested pain medication and discharge. provider notified.
[2021-11-29 00:04] LABS: HCG Quantitative < 2 mIU/mL
[2021-11-29] MEDS: Diclofenac Sodium Delayed Rel 50 MG TABLET.DR PO (01:03)
== END 2021-11-29 01:16 | disposition home or self-care (01) ==
PROVIDERS: Physician Assistant; Emergency Provider Internal Medicine
DX: N93.9 Abnormal uterine and vaginal bleeding, unspecified (principal); R10.32 Left lower quadrant pain; D25.9 Leiomyoma of uterus, unspecified; N83.202 Unspecified ovarian cyst, left side
CPT/HCPCS: 36415; 76857; 80053; 83605; 84702; 85025; 86850; 86900; 86901; 87040; 93975; 96361; 96374; 96375; 99284; J1885; J2270

== ENCOUNTER 2022-05-05 20:31 | Emergency (ER) | payer OTHER, SELFPAY ==
--- NOTE | ~2022-05-05 | US_ITS ---
EXAMINATION: US PELVIS, LIMITED/FOLLOW UP CLINICAL INFORMATION: Vaginal bleeding history of fibroids and cysts COMPARISON: 11/28/2021 TECHNIQUE: Multiple sonographic transabdominal views of the pelvis obtained. FINDINGS: Uterus is anteroverted measuring 9.6 x 3.9 x 9.4 cm in size. Endometrial stripe is 0.6 cm. There is a left fundal fibroid again identified. This currently measures 6.4 x 6.6 x 6.17 m in size compared to 5.8 x 6.8 x 6.1 cm in size on the prior study. The right ovary is unable to be visualized on the transabdominal views. The left ovary is unremarkable measuring 3.4 x 2.0 x 2.5 cm in size. Doppler flow is seen to the left ovary. No significant free fluid US/US pelvic limited IMPRESSION: Stable left fundal fibroid.
--- NOTE | 2022-05-05 20:38 | ED_ITS ---
HPI - Female Genitourinary General Chief complaint: Abdominal Pain <LJ Kirk Last Filed: 05/05/22 20:46> Stated complaint: ovarian cyst ruptures, numbness in hands/feet <LJ Kirk Last Filed: 05/05/22 20:46> Time Seen by Provider: 05/05/22 21:53 <LJ Kirk - Last Filed: 05/05/22 20:46> Source: patient <LJ Azevedo - Last Filed: 05/06/22 02:36> Mode of arrival: ambulatory <LJ Azevedo Last Filed: 05/06/22 02:36> Limitations: no limitations <LJ Azevedo Last Filed: 05/06/22 02:36> History of Present Illness HPI Narrative: [age] female history of ovarian cyst presents ED for lower abdominal pain and vaginal bleeding for the past 3 days. Patient states she had schedule myectomy but her OBGYN caugh covid and the procedure was postponed. <LJ Azevedo Last Filed: 05/06/22 02:36> Related Data Home medications: Home Medications Medication Instructions Recorded Confirmed amitriptyline 100 mg tablet 1 tab PO BEDTIME 08/06/21 08/06/21 norethindrone (contraceptive) 0.35 1 tab PO DAILY 08/06/21 08/06/21 mg tablet (Naima-BE) Previous Rx's Medication Instructions Recorded ibuprofen 600 mg tablet 600 mg PO Q6H PRN pain #20 tabs 09/02/21 acetaminophen 325 mg capsule 325 mg PO QID PRN pain 7 days #28 05/05/22 caps oxycodone 5 mg capsule 5 mg PO TID PRN pain #9 caps 05/05/22 <LJ Kirk Last Filed: 05/05/22 20:46> Allergies/Adverse reactions: Allergies Allergy/AdvReac Type Severity Reaction Status Date / Time ketorolac [From Toradol] Allergy Intermediate Rash Verified 05/05/22 20:41 tramadol Allergy Intermediate Rash Verified 05/05/22 20:41 amoxicillin [AMOXICILLIN] Allergy Unknown SYNCOPE Verified 05/05/22 20:39 apple [APPLE] Allergy Unknown UNKNOWN Verified 08/06/21 17:27 CONTRAST DYE Allergy Unknown SYNCOPE Uncoded 02/20/22 17:27 <LJ Kirk - Last Filed: 05/05/22 20:46> [facility] Social History Social History: Social History Advance Directives: No Advance Directives Information Provided: Yes <LJ Kirk - Last Filed: 05/05/22 20:46> Physical Exam Vital Signs: Vital Signs: Last Vital Signs Temp 98.2 F 05/05/22 20:41 Pulse 100 05/05/22 20:41 Resp 18 05/05/22 20:41 BP 131/78 05/05/22 20:41 Pulse Ox 100 05/05/22 20:41 O2 Del Method 05/05/22 20:41 BMI result Body Mass Index 37.3 <LJ Kirk Last Filed: 05/05/22 20:46> Vital Signs: Last Vital Signs Temp 98.2 F 05/05/22 20:41 Pulse 100 05/05/22 20:41 Resp 18 05/05/22 20:41 BP 131/78 05/05/22 20:41 Pulse Ox 100 05/05/22 20:41 O2 Del Method 05/05/22 20:41 BMI result Body Mass Index 37.3 <LJ Azevedo - Last Filed: 05/06/22 02:36> Const: General: cooperative, healthy appearing and comfortable <LJ Azevedo Last Filed: 05/06/22 02:36> Orientation/consciousness: oriented to person, oriented to place and patient oriented x3 <LJ Azevedo Last Filed: 05/06/22 02:36> HEENT: Head: Yes normal to inspection, Yes No palpable skull fracture present and Yes normocephalic <LJ Azevedo Last Filed: 05/06/22 02:36> Eyes: General: appearance normal, both eyes and all related structures <LJ Azevedo Last Filed: 05/06/22 02:36> Neck: Neck: Yes normal visual inspection, Yes full ROM, Yes no lymphadenopathy, Yes no meningeal signs, Yes trachea midline, Yes supple, No anterior neck swelling and No tender <LJ Azevedo Last Filed: 05/06/22 02:36> Chest: Chest palpation & inspection: normal inspection of the chest and normal palpation of entire chest wall <Kp Paxton, PA Emeterio Last Filed: 05/06/22 02:36> Resp: Effort & Inspection: normal respiratory effort and able to speak in c omplete sentences <Kp Paxton, PA Emeterio Filed: 05/06/22 02:36> Auscultation: clear to auscultation bilaterally <LJ Azevedo Emeterio Last Filed: 05/06/22 02:36> Cardio: Jugular venous distension: no JVD <Kp Paxton, PA Emeterio Last Filed: 05/06/22 02:36> Heart sounds: S1 normal heart sound present and S2 normal heart sound present <LJ Azevedo Emeterio Filed: 05/06/22 02:36> GI: Other: refused pelvic <Kp Paxton, PA Emeterio Filed: 05/06/22 02:36> Inspection: Yes normal to inspection and No abdominal wall ecchymosis <Kp Paxton, PA Last Filed: 05/06/22 02:36> Palpation (GI): not firm, nontender, no guarding and not rigid <Kp Paxton, PA Last Filed: 05/06/22 02:36> : General: No CVA tenderness and Yes no CVA tenderness <Kp PaxtonLJ Emeterio Filed: 05/06/22 02:36> Back/Spine/Pelvis: Back: no CVA tenderness, No CVA tenderness and No back tenderness <Kp Paxton, PA Emeterio Last Filed: 05/06/22 02:36> Skin: General skin exam: no rashes or lesions noted, elasticity normal and turgor normal <Kp Paxton, PA Emeterio Last Filed: 05/06/22 02:36> Neuro: General: oriented to person, oriented to place, patient oriented x3, gait normal, tone normal, no meningeal signs and CN's II-XI intact bilaterally <LJ Azevedo Emeterio Last Filed: 05/06/22 02:36> Extrem: General: Yes normal to inspection and Yes full ROM <LJ Azevedo Last Filed: 05/06/22 02:36> Psych: Appearance: grossly normal, well kempt and not disheveled <LJ Azevedo - Last Filed: 05/06/22 02:36> Course Course Course Narrative: UVALDO--31-year-old female w/PMHx uterine fibroid, ovarian cysts, hx drug seeking behavior per prior notes, presenting to ED complaining of vaginal bleeding w/clots filling 3 pads per hour & lower abdominal pain x fews days. LMP unknown. Admits to similar sx in the past. Was seen at [facility] last week for similar sx. labs, UA, Pelvic US, IVF ordered in triage Patient reports she is a difficult and does not want be stuck twice. Labs not drawn in due to this <LJ Kirk - Last Filed: 05/05/22 20:46> Reevaluation(s) Reevaluation #1: Ultrasound just shows stable fibroid no ovarian rupture or bleeding. I discussed necessity with patient to have labs drawn to make sure her blood count is not too low but patient refused labs. Patient educated on necessity to check for anemia incase she needs blood tranfusion but she refused. patient refused pelvic exam. patient educated on necessity to do pelvic to make sure no hemmorrhage but patient just wants her pain medication. US does not show . patient refuse to give UA. Patient states educated to follow up with OBGYN. Patient educated on risk of from hemorrhaging, low blood count, but she refuse labs and pelvic exam and would like to be discharged. <LJ Azevedo - Last Filed: 05/06/22 02:36> Time: 01:13 <LJ Azevedo - Last Filed: 05/06/22 02:36> Medications Administered Discontinued Medications Generic Name Dose Route Start Last Admin Trade Name Freq PRN Reason Stop Dose Admin Acetaminophen 650 mg 05/05/22 22:46 05/05/22 22:59 Acetaminophen 325 Mg Tablet PO 05/05/22 22:47 650 mg ONCE ONE Administration Sodium Chloride 1,000 mls @ 999 mls/hr 05/05/22 20:45 05/05/22 23:48 Ns IV 05/05/22 21:45 Not Given .Q1H1M TRISTAN Oxycodone HCl 5 mg 05/05/22 22:46 05/05/22 23:01 Oxycodone Hcl Immed Release 5 Mg Tablet PO 05/05/22 22:47 5 mg ONCE ONE Administration <LJ Kirk - Last Filed: 05/05/22 20:46> Medications Administered Discontinued Medications Generic Name Dose Route Start Last Admin Trade Name Venkat PRN Reason Stop Dose Admin Acetaminophen 650 mg 05/05/22 22:46 05/05/22 22:59 Acetaminophen 325 Mg Tablet PO 05/05/22 22:47 650 mg ONCE ONE Administration Sodium Chloride 1,000 mls @ 999 mls/hr 05/05/22 20:45 05/05/22 23:48 Ns IV 05/05/22 21:45 Not Given .Q1H1M TRISTAN Oxycodone HCl 5 mg 05/05/22 22:46 05/05/22 23:01 Oxycodone Hcl Immed Release 5 Mg Tablet PO 05/05/22 22:47 5 mg ONCE ONE Administration <LJ Azevedo - Last Filed: 05/06/22 02:36> MDM - Female Genitourinary Lab Data Labs: Lab Results 05/05/22 05/05/22 Range/Units 23:05 23:05 Urine Color Yellow Urine Appearance Cloudy Urine pH 7.0 (5.0-9.0) Ur Specific [place] 1.015 (1.005-1.025) Urine Protein Negative (Neg-Trace) mg/dL Urine Glucose (UA) Negative (Negative) mg/dL Urine Ketones Negative (Negative) mg/dL Urine Blood Negative (Negative) Urine Nitrite Negative (Negative) Ur Leukocyte Esterase Trace H (Negative) Urine RBC 0-2 (0-2) /HPF Urine WBC 0-5 (0-5) /HPF Ur Squamous Epith Cells 6-10 (0-2) /HPF Urine Bacteria None Seen (None Seen) Hyaline Casts 0-2 (0-2) /LPF Urine Test NEGATIVE (NEGATIVE) <LJ Kirk - Last Filed: 05/05/22 20:46> Lab Results 05/05/22 05/05/22 Range/Units 23:05 23:05 Urine Color Yellow Urine Appearance Cloudy Urine pH 7.0 (5.0-9.0) Ur Specific [place] 1.015 (1.005-1.025) Urine Protein Negative (Neg-Trace) mg/dL Urine Glucose (UA) Negative (Negative) mg/dL Urine Ketones Negative (Negative) mg/dL Urine Blood Negative (Negative) Urine Nitrite Negative (Negative) Ur Leukocyte Esterase Trace H (Negative) Urine RBC 0-2 (0-2) /HPF Urine WBC 0-5 (0-5) /HPF Ur Squamous Epith Cells 6-10 (0-2) /HPF Urine Bacteria None Seen (None Seen) Hyaline Casts 0-2 (0-2) /LPF Urine Test NEGATIVE (NEGATIVE) <LJ Azevedo - Last Filed: 05/06/22 02:36> Discharge Plan Discharge Clinical Impression: Abdominal pain, Fibroid uterus <LJ Kirk - Last Filed: 05/05/22 20:46> Patient Disposition: Home, Self-Care <LJ Kirk - Last Filed: 05/05/22 20:46> Instructions: Abdominal Pain (ED), Pelvic Pain (ED) <LJ Kirk Last Filed: 05/05/22 20:46> Additional Instructions: Please follow-up with OBGYN. Return to the ED with worsening abdominal pain, vaginal bleeding, flank pain, fever, chills, chest pain, shortness of breath, or any other concerning symptoms. <LJ Kirk - Last Filed: 05/05/22 20:46> Prescriptions: New acetaminophen 325 mg capsule 325 mg PO QID PRN (Reason: pain) 7 Days Qty: 28 0RF oxycodone 5 mg capsule 5 mg PO TID PRN (Reason: pain) Qty: 9 0RF Rx Instructions: Partial Fill upon patient request. No Action norethindrone (contraceptive) [Naima-BE] 0.35 mg tablet 1 tab PO DAILY amitriptyline 100 mg tablet 1 tab PO BEDTIME ibuprofen 600 mg tablet 600 mg PO Q6H PRN (Reason: pain) Qty: 20 0RF <LJ Kirk - Last Filed: 05/05/22 20:46> Referrals: Ramirez Rojas MD [Physician] - (PEvlic pain. fibroids) <LJ Kirk Last Filed: 05/05/22 20:46> Stand Alone Forms: Work/School Release <JL Kirk - Last Filed: 05/05/22 20:46> Interventions: ED Discharge Assessment Last Done: 05/06/22 00:14 <LJ Kirk - Last Filed: 05/05/22 20:46> Discharge Date/Time: 05/06/22 00:15 <LJ Kirk - Last Filed: 05/05/22 20:46> Print Language: Ecuadorean <LJ Kirk - Last Filed: 05/05/22 20:46>
[2022-05-05 20:41] VITALS: BP 131/78; PULSE 100; RESP 18; TEMP 36.8; O2SAT 100; BMI 37.3
--- NOTE | 2022-05-05 20:45 | PC.NURSE ---
patient states I am a difficult stick and I am not getting my labs drawn
--- NOTE | 2022-05-05 20:53 | PC.NURSE ---
after being triage this nurse saw the patient walk out the ED doors, radiology looking for the patient
--- NOTE | 2022-05-05 20:54 | PC.NURSE ---
patient was located by security sitting in a vehicle out in the front of the ed, pt taken by radiology for ultrasound
[2022-05-05] MEDS: Acetaminophen 325 MG TABLET 650 MG PO (22:59)
[2022-05-05] MEDS: oxyCODONE HCl Immed Release 5 MG TABLET PO (23:01)
[2022-05-05 23:13] LABS: Appearance Urine Cloudy; Color Urine Yellow; Glucose Urine UA Negative (Negative); Leukocyte Esterase Urine Trace (Negative); Nitrite Urine Negative (Negative); Specific Gravity - Urine 1.015 (1.005-1.025); UMIC TRIGGER UACC YES; Urine Blood Negative (Negative); Urine Ketones Negative (Negative); Urine Protein Negative (Neg-Trace)
[2022-05-05 23:16] LABS: Urine Pregnancy NEGATIVE (NEGATIVE)
[2022-05-05 23:17] LABS: UPreg QC Valid YES
[2022-05-05 23:19] LABS: Bacteria Urine None Seen (None Seen); Hyaline Casts Urine 0-2 /LPF (0-2); RBC Urine 0-2 /HPF (0-2); WBC Urine 0-5 /HPF (0-5)
== END 2022-05-06 00:15 | disposition home or self-care (01) ==
PROVIDERS: Physician Assistant; Emergency Provider Emergency Medicine
DX: R10.30 Lower abdominal pain, unspecified (principal); D25.9 Leiomyoma of uterus, unspecified; Z79.899 Other long term (current) drug therapy
CPT/HCPCS: 76857; 81001; 81025; 99283; 99284

== ENCOUNTER 2022-05-27 02:03 | Emergency (ER) | payer OTHER, SELFPAY ==
[2022-05-27 02:04] VITALS: BP 120/60; PULSE 98; RESP 15; TEMP 37; O2SAT 95; BMI 31.1
--- NOTE | 2022-05-27 02:24 | PC.NURSE ---
Patient refusing bloodwork until she speaks with MD. Patient states she wants to make sure she doesn't need an IV. This RN offers to place IV and draw bloodwork at the same time but patient states she needs to speak to MD before agreeing to being poked at all.
--- NOTE | 2022-05-27 03:12 | ED_ITS ---
HPI - Female Genitourinary General Chief complaint: Vaginal Bleeding Stated complaint: vaginal bleeding Time Seen by Provider: 05/27/22 02:59 Source: patient Mode of arrival: ambulatory Limitations: no limitations History of Present Illness HPI Narrative: Patient comes to the emergency room complaining of vaginal bleeding that has been present for over a month. Patient states that she is anemic at baseline and is concerned that she may be more anemic by now. Patient was diagnosed with uterine and ovarian fibrous/cysts. Patient complaining of suprapubic discomfort. Patient states that she is saturating pads every day constantly. Last time the patient was seen here, patient was sent home with a prescription of oxycodone and acetaminophen. Related Data Home Medications Medication Instructions Recorded Confirmed amitriptyline 100 mg tablet 1 tab PO BEDTIME 08/06/21 08/06/21 norethindrone (contraceptive) 0.35 1 tab PO DAILY 08/06/21 08/06/21 mg tablet (Naima-BE) Previous Rx's Medication Instructions Recorded ibuprofen 600 mg tablet 600 mg PO Q6H PRN pain #20 tabs 09/02/21 acetaminophen 325 mg capsule 325 mg PO QID PRN pain 7 days #28 05/05/22 caps oxycodone 5 mg capsule 5 mg PO TID PRN pain #9 caps 05/05/22 levonorgestrel 0.15 mg-ethinyl 1 tab PO DAILY #84 tabs 05/27/22 estradiol 0.03 mg tablet (Altavera (28)) oxycodone 5 mg tablet 5 mg PO BID PRN pain #7 tabs 05/27/22 Allergies Allergy/AdvReac Type Severity Reaction Status Date / Time ketorolac [From Toradol] Allergy Intermediate Rash Verified 05/27/22 02:04 tramadol Allergy Intermediate Rash Verified 05/27/22 02:04 amoxicillin [AMOXICILLIN] Allergy Unknown SYNCOPE Verified 05/27/22 02:04 apple [APPLE] Allergy Unknown UNKNOWN Verified 05/27/22 02:04 CONTRAST DYE Allergy Unknown SYNCOPE Uncoded 05/27/22 02:04 Review of Systems Review of Systems: Constitutional : No Weight loss, No Fever, No Chills, No Night Sweats, No Fatigue, No Malaise ENT/Mouth : No Hearing loss, No Ear Pain, No Nasal Congestion, No Sinus Pain, No Hoarseness, No sore throat, No Rhinorrhea, No Swallowing Difficulty Eyes: No Eye Pain, No Swelling, No Redness, No Foreign Body, No Discharge, No Vision Changes Cardiovascular : No Chest Pain, No SOB, No Dyspnea on Exertion, No Orthopnea, No Edema, No Palpitations Respiratory : No Cough, No Sputum, No Wheezing, No Smoke Exposure, No Dyspnea Gastrointestinal : No Nausea, No Vomiting, No Diarrhea, No Constipation, No abdominal Pain, No Hematochezia, No Melena Genitourinary : Complaining of heavy irregular bleeding, no dysuria, no frequency, complaining of suprapubic pressure Musculoskeletal : No joint pain, No Myalgias, No Joint Swelling Skin : No Skin Lesions, No rash Neuro : No Weakness, No Numbness, No Paresthesias, No Loss of Consciousness, No Dizziness, No Headache Psych : No Anxiety/Panic, No Depression, No SI/HI/AH/VH, No Social Issues, Heme/Lymph: No Bruising, No Bleeding,No Lymphadenopathy Endocrine : No Polyuria, No Polydipsia, No Temperature Intolerance [facility] Past Medical History Medical History (Updated 05/27/22 @ 06:32 by Melvi Thomas MD) Anemia Social History Social History Advance Directives: No Advance Directives Information Provided: No Physical Exam Vital Signs: Vital Signs: Last Vital Signs Temp 98.2 F 05/27/22 06:08 Pulse 80 05/27/22 06:08 Resp 15 05/27/22 02:04 BP 114/95 H 05/27/22 06:08 Pulse Ox 96 05/27/22 06:08 O2 Del Method 05/27/22 06:08 BMI result Body Mass Index 31.1 Const: Other: Appearance: Alert. Oriented X3. Seems uncomfortable Eyes: Pupils equal, round and reactive to light. ENT: Pharynx normal. Neck: Normal inspection. Neck supple. No lymph nodes noted. No crepitus CVS: Normal heart rate and rhythm. Pulses normal. Normal S1 and S2 Respiratory: No respiratory distress. Breath sounds normal. No Wheezing. No rales Abdomen: Soft and nontender. No rigidity. No distention. : Moderate amount of blood in the vaginal vault, normal cervix Skin: Skin warm and dry. Normal skin color. Normal skin turgor. Extremities: No lower extremity edema. No Lacerations. No Rash Neuro: Oriented X 3. No motor deficit. No sensory deficit. Moving all extremities. No slurred speech. CN 2 through 12 grossly intact Psych: calm, cooperative, normal affect Course Course Course Narrative: Pelvic exam pending. All of patient's labs are pending At this time, ultrasound will not be obtained, patient had an ultrasound about a month ago, patient known to have ovarian cysts and uterine fibroids, patient's symptoms have not changed since then. Patient states that she has taken control pills every day. All of patient's labs are still pending, 03:40 Patient's hemoglobin is actually better than the last time that she had blood work done. Still anemic. I discussed with the patient that she needs to have close follow-up with the primary care physician. Patient will try high-dose control pills to help with the dysfunctional vaginal bleeding On physical exam, patient did not have significant abdominal pain on deep palpation, ovarian torsion not suspected. FINDINGS: Uterus is anteroverted measuring 9.6 x 3.9 x 9.4 cm in size. Endometrial stripe is 0.6 cm. There is a left fundal fibroid again identified. This currently measures 6.4 x 6.6 x 6.17 m in size compared to 5.8 x 6.8 x 6.1 cm in size on the prior study. The right ovary is unable to be visualized on the transabdominal views. The left ovary is unremarkable measuring 3.4 x 2.0 x 2.5 cm in size. Doppler flow is seen to the left ovary. No significant free fluid? US/US pelvic limited IMPRESSION: Stable left fundal fibroid. Medications Administered Discontinued Medications Generic Name Dose Route Start Last Admin Trade Name Freq PRN Reason Stop Dose Admin Acetaminophen 650 mg 05/27/22 05:07 05/27/22 05:15 Acetaminophen 325 Mg Tablet PO 05/27/22 05:08 650 mg ONCE ONE Administration Oxycodone HCl 5 mg 05/27/22 03:06 05/27/22 03:19 Oxycodone Hcl Immed Release 5 Mg Tablet PO 05/27/22 03:07 5 mg ONCE ONE Administration Discharge Plan Discharge Clinical Impression: Dysfunctional uterine bleeding Patient Disposition: Home, Self-Care Instructions: Dysfunctional Uterine Bleeding (ED) Additional Instructions: Please follow-up with your primary care physician tomorrow. If you have any worsening or new symptoms, please return to the emergency room or call 911 Prescriptions: New levonorgestrel-ethinyl estrad [Altavera (28)] 0.15-0.03 mg tablet 1 tab PO DAILY Qty: 84 0RF Rx Instructions: Take 4 tabs for 2 days, then take 3 tablets for 2 days, then take 2 tablets for 2 days, take 1 tablet until finishing the pack. oxycodone 5 mg tablet 5 mg PO BID PRN (Reason: pain) Qty: 7 0RF Rx Instructions: Partial Fill upon patient request. No Action norethindrone (contraceptive) [Naima-BE] 0.35 mg tablet 1 tab PO DAILY amitriptyline 100 mg tablet 1 tab PO BEDTIME ibuprofen 600 mg tablet 600 mg PO Q6H PRN (Reason: pain) Qty: 20 0RF acetaminophen 325 mg capsule 325 mg PO QID PRN (Reason: pain) 7 Days Qty: 28 0RF oxycodone 5 mg capsule 5 mg PO TID PRN (Reason: pain) Qty: 9 0RF Rx Instructions: Partial Fill upon patient request. Referrals: Ramirez Rojas MD [Physician] - 3 days
[2022-05-27] MEDS: oxyCODONE HCl Immed Release 5 MG TABLET PO (03:19)
[2022-05-27 03:59] LABS: MANUAL DIFF FLAG NO
[2022-05-27 04:00] LABS: Basophils Absolute Auto 0.1 X10*3/uL (0.0-0.2); Basophils Percent Auto 1.1 % (0-2); Eosinophils Absolute Auto 0.4 X10*3/uL (0.0-0.4); Eosinophils Percent Auto 4.7 % (0-4); Hemoglobin 10.9 g/dl (12.0-16.0); Imm Gran Abs Auto 0.01 X10*3/uL (0.00-0.03); Imm Gran Pct Auto 0.1 % (0.0-0.4); Lymphocytes Absolute Auto 2.6 X10*3/uL (1.2-4.9); Lymphocytes Percent Auto 29.7 % (20-40); Mean Corpuscular HGB Conc 32.1 g/dl (31.0-35.0); Mean Corpuscular Hemoglobin 22.3 pg (27.0-33.0); Mean Corpuscular Volume 69.7 fL (80.0-98.0); Mean Platelet Volume 9.2 fL (9.4-12.3); Monocytes Absolute Auto 0.6 X10*3/uL (0.1-1.2); Monocytes Percent Auto 6.8 % (2-11); Neutrophils Percent Auto 57.6 % (45-73); Platelet Count 410 X10*3/uL (160-400); Red Blood Count 4.88 X10*6/uL (4.20-5.50); Red Cell Distribution Width 15.2 % (11.0-16.0); White Blood Count 8.7 X10*3/uL (4.8-10.8)
[2022-05-27] MEDS: Acetaminophen 325 MG TABLET 650 MG PO (05:15)
[2022-05-27 05:30] LABS: Alanine Aminotransferase 10 U/L (0-31); Albumin Level 4.4 g/dL (3.5-5.0); Alkaline Phosphatase 64 U/L (39-117); Anion Gap 14 (12-20); Aspartate Amino Transferase 17 U/L (5-31); Bilirubin Total 0.3 mg/dL (0.0-1.0); Blood Urea Nitrogen 14 mg/dL (9-16); Calcium 9.2 mg/dL (8.4-10.2); Carbon Dioxide 23 mmol/L (22-29); Chloride 104 mmol/L (96-108); Creatinine Clr Calc Pharmacy 96.6; Estimated Glomerular Filt Rate > 60; Glucose Random 97 mg/dL (60-115); HCG Quantitative < 2 mIU/mL; Potassium 4.6 mmol/L (3.3-5.1); Sodium 136 mmol/L (135-145); Total Protein 7.2 g/dL (6.5-8.0)
[2022-05-27 06:08] VITALS: BP 114/95; PULSE 80; TEMP 36.8; O2SAT 96
== END 2022-05-27 06:48 | disposition home or self-care (01) ==
PROVIDERS: Emergency Provider Emergency Medicine; PCP Physician Assistant
DX: N93.8 Other specified abnormal uterine and vaginal bleeding (principal); Z79.899 Other long term (current) drug therapy
CPT/HCPCS: 36415; 80053; 84702; 85025; 99283; 99284

== ENCOUNTER 2022-06-03 23:30 | Emergency (ER) | payer OTHER, SELFPAY ==
[2022-06-03 23:35] VITALS: BP 136/93; PULSE 93; RESP 18; TEMP 36.8; O2SAT 97; BMI 30.2
--- NOTE | 2022-06-04 | MHC.EDTECH ---
Pt asked to slubber frame changer into a hospital gown pt stated no the doctors don't always examine me i don't need to change Hospital gown left bedside. Call singer placed in reach
--- NOTE | 2022-06-04 00:03 | ED.FEMALEGU ---
HPI - Female Genitourinary General Chief complaint: Vaginal Bleeding Stated complaint: stomach pain, migraine Time Seen by Provider: 06/03/22 23:58 Source: patient Mode of arrival: ambulatory History of Present Illness HPI Narrative: 31-year-old female presents with complaints of lower abdominal discomfort that she states has been associated with persistent vaginal bleeding that has been ongoing for ?1.5 months?. Patient was recently seen here by a provider and started on an OCP and patient states that the referral for Ob was declined when the patient call the office. Patient states that she last saw her primary care provider 1 month ago. Related Data Home Medications Medication Instructions Recorded Confirmed amitriptyline 100 mg tablet 1 tab PO BEDTIME 08/06/21 08/06/21 norethindrone (contraceptive) 0.35 1 tab PO DAILY 08/06/21 08/06/21 mg tablet (Naima-BE) Previous Rx's Medication Instructions Recorded ibuprofen 600 mg tablet 600 mg PO Q6H PRN pain #20 tabs 09/02/21 acetaminophen 325 mg capsule 325 mg PO QID PRN pain 7 days #28 05/05/22 caps oxycodone 5 mg capsule 5 mg PO TID PRN pain #9 caps 05/05/22 levonorgestrel 0.15 mg-ethinyl 1 tab PO DAILY #84 tabs 05/27/22 estradiol 0.03 mg tablet (Altavera (28)) oxycodone 5 mg tablet 5 mg PO BID PRN pain #7 tabs 05/27/22 oxycodone 5 mg tablet 5 mg PO BID PRN pain #7 tabs 05/27/22 Allergies Allergy/AdvReac Type Severity Reaction Status Date / Time ketorolac [From Toradol] Allergy Intermediate Rash Verified 05/27/22 02:04 tramadol Allergy Intermediate Rash Verified 05/27/22 02:04 amoxicillin [AMOXICILLIN] Allergy Unknown SYNCOPE Verified 05/27/22 02:04 apple [APPLE] Allergy Unknown UNKNOWN Verified 05/27/22 02:04 CONTRAST DYE Allergy Unknown SYNCOPE Uncoded 05/27/22 02:04 Review of Systems Review of Systems: Pertinent positives and negatives as stated in HPI 10 point review of systems is otherwise negative. PMFSH Past Medical History Source: nursing notes reviewed Medical History Anemia Social History Social History Advance Directives: No Advance Directives Information Provided: No Physical Exam Vital Signs: Vital Signs: Last Vital Signs Temp 98.1 F 06/04/22 00:26 Pulse 88 06/04/22 00:26 Resp 18 06/04/22 00:26 BP 137/84 06/04/22 00:26 Pulse Ox 99 06/04/22 00:26 O2 Del Method 06/04/22 00:26 BMI result Body Mass Index 30.2 VITAL SIGNS: Reviewed. GENERAL: Well developed, well nourished, in no acute distress. HEAD: Normocephalic/atraumatic EYES: PERRLA, EOMI EARS: Ext canals without abnormality OROPHARYNX: no oral lesions noted, posterior pharynx clear LUNGS: Normal breath sounds. No adventitious sounds or accessory muscle use. SpO2<99> CARDIOVASCULAR: Regular rate and rhythm without noted murmurs ABDOMEN: Soft, non-tender, non-distended with bowel sounds. MUSCULOSKELETAL: No tenderness, deformities, or effusions noted on gross inspection. EXTREMITIES: No cyanosis, clubbing or edema. SKIN: Inspection of the skin reveals no rashes NEUROLOGIC: Alert and oriented x 4. Strength and sensation to light touch were grossly intact x 4. Course Course Course Narrative: 31-year-old female with history and clinical presentation of recurrent visits for the vaginal bleeding and uterine fibroids with a stable hemoglobin, no objective measurements to suggest acute blood loss such as tachycardia or hypotension. When she was last seen she was appropriately prescribed OCPs and provided with a referral to follow-up with our facilities OB provider but the exact conversation when the patient called is unclear. Patient also has a primary care provider and she was strongly encouraged to follow-up with this provider as they are well within their scope of practice and training to manage vaginal bleeding of this nature and would likely be an additional resource for referral to Gynecology. Patient was unhappy with plan and I was informed by nursing staff that patient wanted to leave if she was unable to see a different provider which unfortunately is not available at this time. I was informed by nursing that patient left with additional resources that she would be able to call in the morning. Medications Administered Discontinued Medications Generic Name Dose Route Start Last Admin Trade Name Freq PRN Reason Stop Dose Admin Acetaminophen 975 mg 06/04/22 01:35 06/04/22 01:52 Acetaminophen 325 Mg Tablet PO 06/04/22 01:36 Not Given ONCE ONE Discharge Plan Discharge Clinical Impression: Vaginal bleeding Patient Disposition: Elopement Prescriptions: No Action norethindrone (contraceptive) [Naima-BE] 0.35 mg tablet 1 tab PO DAILY amitriptyline 100 mg tablet 1 tab PO BEDTIME ibuprofen 600 mg tablet 600 mg PO Q6H PRN (Reason: pain) Qty: 20 0RF acetaminophen 325 mg capsule 325 mg PO QID PRN (Reason: pain) 7 Days Qty: 28 0RF oxycodone 5 mg capsule 5 mg PO TID PRN (Reason: pain) Qty: 9 0RF Rx Instructions: Partial Fill upon patient request. levonorgestrel-ethinyl estrad [Altavera (28)] 0.15-0.03 mg tablet 1 tab PO DAILY Qty: 84 0RF Rx Instructions: Take 4 tabs for 2 days, then take 3 tablets for 2 days, then take 2 tablets for 2 days, take 1 tablet until finishing the pack. oxycodone 5 mg tablet 5 mg PO BID PRN (Reason: pain) Qty: 7 0RF Rx Instructions: Partial Fill upon patient request. oxycodone 5 mg tablet 5 mg PO BID PRN (Reason: pain) Qty: 7 0RF Rx Instructions: Partial Fill upon patient request. Interventions: ED Discharge Assessment Last Done: 06/04/22 01:55 Discharge Date/Time: 06/04/22 01:55
[2022-06-04 00:26] VITALS: BP 137/84; PULSE 88; RESP 18; TEMP 36.7; O2SAT 99
--- NOTE | 2022-06-04 00:37 | MHC.EDTECH ---
Pt reminded that a urine sample is needed. PT asked for fluids. Pt given a cup of ice water and instructed to ring call singer when urine sample obtained
--- NOTE | 2022-06-04 00:44 | MHC.EDTECH ---
Pt refused tech doing blood draw. Pt states that she is a hard stick and wants the nurse to do her blood when she gets an iv. Heydi Campbell made aware.
--- NOTE | 2022-06-04 01:45 | PC.NURSE ---
pt asking for another provider. reviewed with pt the process we are taking:labs, urine, and intake with doctor. Pt wanting to follow up with her obgny that she has not followed up with yet. dr díaz notified.
== END 2022-06-04 01:55 | disposition left against medical advice (07) ==
PROVIDERS: Emergency Provider Student in an Organized Health Care Education/Training Program
DX: N93.8 Other specified abnormal uterine and vaginal bleeding (principal); G43.909 Migraine, unspecified, not intractable, without status migrainosus; R10.13 Epigastric pain; Z79.899 Other long term (current) drug therapy
CPT/HCPCS: 99283

== ENCOUNTER 2022-06-17 03:20 | Emergency (ER) | payer OTHER, SELFPAY ==
[2022-06-17 03:28] VITALS: BP 113/53; PULSE 99; RESP 20; TEMP 36.7; O2SAT 100; BMI 29.2
[2022-06-17] MEDS: oxyCODONE HCl Immed Release 5 MG TABLET 10 MG PO (05:37)
[2022-06-17 05:59] LABS: Basophils Absolute Auto 0.1 X10*3/uL (0.0-0.2); Basophils Percent Auto 0.8 % (0-2); Eosinophils Absolute Auto 0.3 X10*3/uL (0.0-0.4); Eosinophils Percent Auto 2.8 % (0-4); Hematocrit 31.2 % (37.0-47.0); Imm Gran Abs Auto 0.02 X10*3/uL (0.00-0.03); Imm Gran Pct Auto 0.2 % (0.0-0.4); Lymphocytes Absolute Auto 3.6 X10*3/uL (1.2-4.9); Lymphocytes Percent Auto 31.2 % (20-40); MANUAL DIFF FLAG NO; Mean Corpuscular HGB Conc 32.1 g/dl (31.0-35.0); Mean Corpuscular Hemoglobin 22.3 pg (27.0-33.0); Mean Corpuscular Volume 69.5 fL (80.0-98.0); Mean Platelet Volume 8.5 fL (9.4-12.3); Monocytes Absolute Auto 0.5 X10*3/uL (0.1-1.2); Monocytes Percent Auto 4.7 % (2-11); Neutrophils Absolute Auto 6.9 x10*3/uL (2.0-8.3); Neutrophils Percent Auto 60.3 % (45-73); Platelet Count 389 X10*3/uL (160-400); Red Blood Count 4.49 X10*6/uL (4.20-5.50); Red Cell Distribution Width 14.9 % (11.0-16.0); White Blood Count 11.4 X10*3/uL (4.8-10.8)
[2022-06-17 06:04] LABS: Appearance Urine Clear; Color Urine Yellow; Glucose Urine UA Negative (Negative); Leukocyte Esterase Urine Moderate (2+) (Negative); Nitrite Urine Negative (Negative); PH 7.5 (5.0-9.0); Specific Gravity - Urine <= 1.005 (1.005-1.025); UMIC TRIGGER UACC YES; Urine Blood Negative (Negative); Urine Ketones Negative (Negative); Urine Protein Negative (Neg-Trace)
[2022-06-17 06:09] LABS: Bacteria Urine None Seen (None Seen); Hyaline Casts Urine 0-2 /LPF (0-2); UACC Culture Trigger YES
[2022-06-17 06:17] LABS: Amphetamine Screen Urine Not Detected (Not Detect); Barbiturates, Urine Not Detected (Not Detect); Benzodiazepines Screen Urine Not Detected (Not Detect); Cannabinoid Screen Urine POSITIVE (Not Detect); Cocaine Screen Urine Not Detected (Not Detect); Fentanyl, urine POSITIVE (Not Detect); Opiate Screen Urine POSITIVE (Not Detect); Phencyclidine Screen Urine Not Detected (Not Detect)
[2022-06-17 06:18] LABS: Alanine Aminotransferase 12 U/L (0-31); Albumin Level 4.2 g/dL (3.5-5.0); Alkaline Phosphatase 53 U/L (39-117); Anion Gap 14 (12-20); Aspartate Amino Transferase 17 U/L (5-31); Bilirubin Total < 0.2 mg/dL (0.0-1.0); Blood Urea Nitrogen 9 mg/dL (9-16); Calcium 9.3 mg/dL (8.4-10.2); Carbon Dioxide 22 mmol/L (22-29); Chloride 105 mmol/L (96-108); Creatinine Clr Calc Pharmacy 98.7; Estimated Glomerular Filt Rate > 60; Glucose Random 91 mg/dL (60-115); Lipase 22 U/L (8-78); Potassium 4.2 mmol/L (3.3-5.1); Sodium 137 mmol/L (135-145)
[2022-06-17 06:27] LABS: HCG Quantitative < 2 mIU/mL
--- NOTE | 2022-06-17 06:29 | ED.ABDPAIN ---
HPI - Abdominal Pain General Chief Complaint: Abdominal Pain Stated Complaint: Abd Pain Time Seen by Provider: 06/17/22 05:03 Source: patient Mode of arrival: ambulatory Limitations: no limitations History of Present Illness HPI narrative: 31-year-old female who presents emergency department for evaluation of lower abdominal pain x3 months. Patient states she has had constant pain in her lower abdomen which she describes as a sharp, stabbing, knife-like pain which is constant and is greater than 10/10. Patient states that she has been seen multiple times here in the emergency department with her last visit on 05/05/2022. During that visit the patient did have a pelvic ultrasound which revealed a stable fibroid with no significant ovarian cyst or free fluid noted and this ultrasound was unchanged from a previous ultrasound dated 11/28/2021. Patient states she was prescribed naproxen and this is not helping her pain. She denied fever, chills, nausea, vomiting or diarrhea. She denied frequency, urgency or dysuria. Related Data Home Medications Medication Instructions Recorded Confirmed amitriptyline 100 mg tablet 1 tab PO BEDTIME 08/06/21 08/06/21 norethindrone (contraceptive) 0.35 1 tab PO DAILY 08/06/21 08/06/21 mg tablet (Naima-BE) Previous Rx's Medication Instructions Recorded ibuprofen 600 mg tablet 600 mg PO Q6H PRN pain #20 tabs 09/02/21 acetaminophen 325 mg capsule 325 mg PO QID PRN pain 7 days #28 05/05/22 caps oxycodone 5 mg capsule 5 mg PO TID PRN pain #9 caps 05/05/22 levonorgestrel 0.15 mg-ethinyl 1 tab PO DAILY #84 tabs 05/27/22 estradiol 0.03 mg tablet (Altavera (28)) oxycodone 5 mg tablet 5 mg PO BID PRN pain #7 tabs 05/27/22 oxycodone 5 mg tablet 5 mg PO BID PRN pain #7 tabs 05/27/22 acetaminophen 500 mg tablet 1,000 mg PO Q6H PRN fever or pain 06/17/22 (Tylenol Extra Strength) #20 tabs ferrous sulfate 325 mg (65 mg 325 mg PO BID #90 tabs 06/17/22 iron) tablet (iron) Allergies Allergy/AdvReac Type Severity Reaction Status Date / Time ketorolac [From Toradol] Allergy Intermediate Rash Verified 06/17/22 03:32 tramadol Allergy Intermediate Rash Verified 06/17/22 03:32 amoxicillin [AMOXICILLIN] Allergy Unknown SYNCOPE Verified 06/17/22 03:32 apple [APPLE] Allergy Unknown UNKNOWN Verified 06/17/22 03:32 CONTRAST DYE Allergy Unknown SYNCOPE Uncoded 05/27/22 02:04 Review of Systems Review of Systems Yes all other systems are reviewed and are negative [facility] Past Medical History [facility] Narrative: Past medical history: Ovarian cyst and fibroids. Surgical history: None. Social history: She denies tobacco, alcohol and drug use. Medical History Anemia Social History Social History Smoked in Last 30 Days: No Use of substances other than those prescribed or required for medical reasons: No Advance Directives: No Advance Directives Information Provided: No Patient : No Physical Exam ED Vital Signs: Vital Signs - 24 hr 06/17/22 03:28 Temperature 98.1 F Pulse Rate 99 Respiratory Rate 20 Blood Pressure 113/53 L Pulse Oximetry 100 Oxygen Delivery Method Room Air BMI result Body Mass Index 29.2 Const General: cooperative and no acute distress Orientation/consciousness: oriented to person and oriented to place Limitations: no limitations HENMT Head: Yes normal to inspection, Yes normocephalic and Yes atraumatic Ears: external ears normal General nose exam: Normal external nose present Face and sinus: Yes normal facial exam Mouth: Normal oral and palatal mucosa present Throat: Yes posterior oropharynx normal Eyes General: appearance normal, both eyes and all related structures Pupils: Equal, round and reactive pupils present Neck Neck: Yes normal visual inspection, Yes no lymphadenopathy, Yes trachea midline and Yes supple Chest Chest palpation & inspection: normal inspection of the chest and normal palpation of entire chest wall Resp Effort & Inspection: normal respiratory effort and able to speak in complete sentences Auscultation: clear to auscultation bilaterally Cardio Rate: regular rate Rhythm: regular rhythm Heart sounds: S1 normal heart sound present, S2 normal heart sound present and no murmurs GI Palpation (GI): Soft to palpation and Tenderness to palpation present (GI) in the LLQ, in the RLQ and suprapubicly General: Yes no CVA tenderness Back/Spine/Pelvis Back: no CVA tenderness Skin General skin exam: no rashes or lesions noted Neuro General: oriented to person and oriented to place Cranial nerves: Yes CN's II-XII intact bilaterally and Yes Equal, round and reactive pupils present Cognition (Neuro): normal cognition Motor exam (neuro): 5/5 motor strength present throughout Extrem General: Yes normal to inspection Psych Appearance: grossly normal Speech and movement: Normal speech and movement present Affect: normal affect Attitude: cooperative Thought process: Normal thought process present Thought content: Normal thought content present Medical Decision Making Medical Decision Making MDM Narrative: 31-year-old female with a history of ovarian cysts and uterine fibroid who presents emergency department for evaluation of lower abdominal pain x3 months, the pain is been constant and has been greater than 10/10. She describes the pain is a knife-like pain. Patient has been seen in the emergency department several times for this pain and was last seen in the emergency department on 05/05/2022 where she had an ultrasound revealed a single uterine fibroid which was stable incised unchanged from ultrasound dated 11/28/2021 and no significant ovarian cysts or free fluid. I did order laboratory evaluation to include CBC, CMP, lipase, urinalysis, urine drug screen, beta hCG. Patient was ordered to get oxycodone 10 mg orally for her pain. Differential Diagnosis Differential Diagnoses: The differential diagnosis associated with the presentation includes Ruptured ovarian cyst, appendicitis, pancreatitis, urinary tract infection, chronic pain syndrome Lab Data [facility] Lab Attestation statement: I reviewed the patient's lab results. Independent review of the patient's laboratory evaluation by me is as follows: Microcytic anemia, non clean catch urinalysis, negative quantitative beta-hCG test, urine tox screen positive for opiates, fentanyl and marijuana. Result Diagrams: 06/17/22 05:55 06/17/22 05:55 Labs: Lab Results 06/17/22 06/17/22 06/17/22 Range/Units 05:55 05:55 05:55 WBC 11.4 H (4.8-10.8) X10*3/uL RBC 4.49 (4.20-5.50) X10*6/uL Hgb 10.0 L (12.0-16.0) g/dl Hct 31.2 L (37.0-47.0) % MCV 69.5 L (80.0-98.0) fL MCH 22.3 L (27.0-33.0) pg MCHC 32.1 (31.0-35.0) g/dl RDW 14.9 (11.0-16.0) % Plt Count 389 (160-400) X10*3/uL MPV 8.5 L (9.4-12.3) fL Immature Gran % (Auto) 0.2 (0.0-0.4) % Neut % (Auto) 60.3 (45-73) % Lymph % (Auto) 31.2 (20-40) % [place] % (Auto) 4.7 (2-11) % Eos % (Auto) 2.8 (0-4) % Baso % (Auto) 0.8 (0-2) % Lymph # (Auto) 3.6 (1.2-4.9) X10*3/uL [place] # (Auto) 0.5 (0.1-1.2) X10*3/uL Eos # (Auto) 0.3 (0.0-0.4) X10*3/uL Baso # (Auto) 0.1 (0.0-0.2) X10*3/uL Abs Immat Gran (auto) 0.02 (0.00-0.03) X10*3/uL Absolute Neuts (auto) 6.9 (2.0-8.3) x10*3/uL Absolute Nucleated RBC 0.000 (0.0-0.012) X10*3/uL Nucleated RBC % (auto) 0.0 (0.0-0.2) /100WBC Sodium 137 (135-145) mmol/L Potassium 4.2 (3.3-5.1) mmol/L Chloride 105 (96-108) mmol/L Carbon Dioxide 22 (22-29) mmol/L Anion Gap 14 (12-20) BUN 9 (9-16) mg/dL Creatinine 0.77 (0.5-1.4) mg/dL Estim Creat Clear Calc 98.7 Estimated GFR > 60 Random Glucose 91 (60-115) mg/dL Calcium 9.3 (8.4-10.2) mg/dL Total Bilirubin < 0.2 (0.0-1.0) mg/dL AST 17 (5-31) U/L ALT 12 (0-31) U/L Alkaline Phosphatase 53 (39-117) U/L Total Protein 7.0 (6.5-8.0) g/dL Albumin 4.2 (3.5-5.0) g/dL Lipase 22 (8-78) U/L Beta HCG, Quant < 2 mIU/mL Urine Color Urine Appearance Urine pH (5.0-9.0) Ur Specific [place] (1.005-1.025) Urine Protein (Neg-Trace) mg/dL Urine Glucose (UA) (Negative) mg/dL Urine Ketones (Negative) mg/dL Urine Blood (Negative) Urine Nitrite (Negative) Ur Leukocyte Esterase (Negative) Urine RBC (0-2) /HPF Urine WBC (0-5) /HPF Ur Squamous Epith Cells (0-2) /HPF Urine Bacteria (None Seen) Hyaline Casts (0-2) /LPF Urine Opiates Screen (Not Detect) Urine Fentanyl Screen (Not Detect) Ur Barbiturates Screen (Not Detect) Ur Phencyclidine Scrn (Not Detect) Ur Amphetamines Screen (Not Detect) U Benzodiazepines Scrn (Not Detect) Urine Cocaine Screen (Not Detect) U Marijuana (THC) Screen (Not Detect) 06/17/22 06/17/22 Range/Units 05:58 05:58 WBC (4.8-10.8) X10*3/uL RBC (4.20-5.50) X10*6/uL Hgb (12.0-16.0) g/dl Hct (37.0-47.0) % MCV (80.0-98.0) fL MCH (27.0-33.0) pg MCHC (31.0-35.0) g/dl RDW (11.0-16.0) % Plt Count (160-400) X10*3/uL MPV (9.4-12.3) fL Immature Gran % (Auto) (0.0-0.4) % Neut % (Auto) (45-73) % Lymph % (Auto) (20-40) % [place] % (Auto) (2-11) % Eos % (Auto) (0-4) % Baso % (Auto) (0-2) % Lymph # (Auto) (1.2-4.9) X10*3/uL [place] # (Auto) (0.1-1.2) X10*3/uL Eos # (Auto) (0.0-0.4) X10*3/uL Baso # (Auto) (0.0-0.2) X10*3/uL Abs Immat Gran (auto) (0.00-0.03) X10*3/uL Absolute Neuts (auto) (2.0-8.3) x10*3/uL Absolute Nucleated RBC (0.0-0.012) X10*3/uL Nucleated RBC % (auto) (0.0-0.2) /100WBC Sodium (135-145) mmol/L Potassium (3.3-5.1) mmol/L Chloride (96-108) mmol/L Carbon Dioxide (22-29) mmol/L Anion Gap (12-20) BUN (9-16) mg/dL Creatinine (0.5-1.4) mg/dL Estim Creat Clear Calc Estimated GFR Random Glucose (60-115) mg/dL Calcium (8.4-10.2) mg/dL Total Bilirubin (0.0-1.0) mg/dL AST (5-31) U/L ALT (0-31) U/L Alkaline Phosphatase (39-117) U/L Total Protein (6.5-8.0) g/dL Albumin (3.5-5.0) g/dL Lipase (8-78) U/L Beta HCG, Quant mIU/mL Urine Color Yellow Urine Appearance Clear Urine pH 7.5 (5.0-9.0) Ur Specific [place] <= 1.005 (1.005-1.025) Urine Protein Negative (Neg-Trace) mg/dL Urine Glucose (UA) Negative (Negative) mg/dL Urine Ketones Negative (Negative) mg/dL Urine Blood Negative (Negative) Urine Nitrite Negative (Negative) Ur Leukocyte Esterase Moderate (2+) H (Negative) Urine RBC 3-5 H (0-2) /HPF Urine WBC 11-20 H (0-5) /HPF Ur Squamous Epith Cells 6-10 (0-2) /HPF Urine Bacteria None Seen (None Seen) Hyaline Casts 0-2 (0-2) /LPF Urine Opiates Screen POSITIVE H (Not Detect) Urine Fentanyl Screen POSITIVE H (Not Detect) Ur Barbiturates Screen Not Detected (Not Detect) Ur Phencyclidine Scrn Not Detected (Not Detect) Ur Amphetamines Screen Not Detected (Not Detect) U Benzodiazepines Scrn Not Detected (Not Detect) Urine Cocaine Screen Not Detected (Not Detect) U Marijuana (THC) Screen POSITIVE H (Not Detect) Tests considered The following testing was considered but not selected: I considered obtaining a CT scan of the abdomen pelvis however given a normal laboratory evaluation I did not think that this was needed. Prescription Management Patient was advised to continue taking her naproxen. She was prescribed Tylenol for pain. She was also started on iron sulfate for microcytic anemia. She was given and intranasal Narcan take home pack given her positive fentanyl drug screen. Medications Administered Discontinued Medications Generic Name Dose Route Start Last Admin Trade Name Freq PRN Reason Stop Dose Admin Oxycodone HCl 10 mg 06/17/22 05:18 06/17/22 05:37 Oxycodone Hcl Immed Release 5 Mg Tablet PO 06/17/22 05:19 10 mg ONCE ONE Administration Discharge Plan Discharge Clinical Impression: Abdominal pain, Microcytic anemia Patient Disposition: Home, Self-Care Instructions: Iron Deficiency Anemia (ED), Abdominal Pain (ED) Additional Instructions: Your blood work did reveal a microcytic anemia (low red blood cell count) which is often caused by low iron. Your blood work was otherwise unremarkable. At your last visit in the emergency department on 05/05/2022, you did have a fibroid which was stable and was unchanged from an ultrasound that was done on 11/28/2021 therefore I do not think that the fiber is the cause of your pain. At this time I do not have a clear cause for your pain, you will need to follow-up with your doctor to discuss further management of your pain. Take the naproxen as prescribed. Take Tylenol (acetaminophen) 500 mg pills, 2 pills every 6 hours as needed for pain. Take iron (ferrous sulfate) 325 mg pills, 1 pill twice a day for 2 months. Follow-up with your doctor in 2 days. Please return to the emergency department if your symptoms get worse or if you develop any symptoms that are concerning to you. Your urine tox screen was positive for opiates, fentanyl and marijuana. Do not take any medications that are not prescribed by your providers. Do not take any pills from friend any pills that were purchased on the street . These types of medicines most likely have fentanyl in them and 1 pill and killed you. Your are being discharged home with intranasal Narcan. If you ever decide to use street drugs, you should make sure that a sober person is with you that is not using drugs and that this person can administer intranasal Narcan in the event that you stop breathing. You can also save someone life if you think they have overdosed on drugs by giving them intranasal Narcan. Prescriptions: New acetaminophen [Tylenol Extra Strength] 500 mg tablet 1,000 mg PO Q6H PRN (Reason: fever or pain) Qty: 20 0RF ferrous sulfate [iron] 325 mg (65 mg iron) tablet 325 mg PO BID Qty: 90 0RF No Action norethindrone (contraceptive) [Naima-BE] 0.35 mg tablet 1 tab PO DAILY amitriptyline 100 mg tablet 1 tab PO BEDTIME ibuprofen 600 mg tablet 600 mg PO Q6H PRN (Reason: pain) Qty: 20 0RF acetaminophen 325 mg capsule 325 mg PO QID PRN (Reason: pain) 7 Days Qty: 28 0RF oxycodone 5 mg capsule 5 mg PO TID PRN (Reason: pain) Qty: 9 0RF Rx Instructions: Partial Fill upon patient request. levonorgestrel-ethinyl estrad [Altavera (28)] 0.15-0.03 mg tablet 1 tab PO DAILY Qty: 84 0RF Rx Instructions: Take 4 tabs for 2 days, then take 3 tablets for 2 days, then take 2 tablets for 2 days, take 1 tablet until finishing the pack. oxycodone 5 mg tablet 5 mg PO BID PRN (Reason: pain) Qty: 7 0RF Rx Instructions: Partial Fill upon patient request. oxycodone 5 mg tablet 5 mg PO BID PRN (Reason: pain) Qty: 7 0RF Rx Instructions: Partial Fill upon patient request.
== END 2022-06-17 07:03 | disposition home or self-care (01) ==
PROVIDERS: Emergency Provider Emergency Medicine Emergency Medical Services
DX: R10.13 Epigastric pain (principal); D53.9 Nutritional anemia, unspecified; Z79.899 Other long term (current) drug therapy
CPT/HCPCS: 36415; 80053; 80307; 81001; 83690; 84702; 85025; 87086; 99284